=== PATIENT | male | born 1960 | race Caucasian/White ===

== ENCOUNTER 2025-08-30 12:01 | Inpatient (IN) | payer OTHER, SELFPAY ==
[2025-08-30] VITALS (12 sets, daily range): BP systolic 110–153; BP diastolic 75–106; BMI 25.6
[2025-08-30 08:19] LABS: Hematocrit 43.2 % (39.0-52.0); Hemoglobin 14.6 g/dL (13.0-18.0); Mean Corp Hgb Conc. 33.8 g/dL (33.0-37.0); Mean Corpuscular Volume 89.3 fL (80.0-94.0); Platelet Count 219 10^3/uL (130-400); Red Cell Dist. Width 12.2 % (11.5-14.5)
[2025-08-30 08:33] LABS: Blood Urea Nitrogen 16 mg/dl (9-20); Calcium 10.1 mg/dl (8.4-10.2); Carbon Dioxide 26 mmol/L (22-30); Chloride 105 mmol/L (98-107); Estimated Creatinine Clearance 85 ml/min; Glucose 165 mg/dl (70-99); Potassium 4.5 mmol/L (3.5-5.1); Sodium 139 mmol/L (135-145); eGFR > 60.00
[2025-08-30] MEDS: LOW STRENGTH ASPIRIN 324 MG PO (08:47)
[2025-08-30] MEDS: NSS 246 ML IV (08:48)
[2025-08-30 09:02] LABS: Glucose - Point of Care 171 mg/dl (70-99)
--- NOTE | 2025-08-30 12:21 | ITS.CL.CATH ---
Balance Wheel Facer - Catheterization
Cardiac Catheterization
Procedure Report:
LEFT HEART CATHETERIZATION
Date of Procedure: August 30, 2025
Procedures performed:
1: Coronary angiography
2: Left ventriculography
Primary Care Physician: Dr. Valerie Tian
Primary Mine Safety Engineer: Myself
INDICATION: The patient is a 64-year-old male with a past medical history of hypertension, hyperlipidemia, and diabetes mellitus who presents with new angina. Exercise stress test was markedly positive yesterday and he is referred for cath.
ACCESS: The patient was prepped and draped in usual sterile fashion. A 6 Angolan sheath was placed in the right radial artery using the Seldinger over the wire technique.
HEMODYNAMIC FINDINGS (mmHg):
LV(s/d,EDP): 121/13, 17
Ao(s/d,m): 121/78, 98
ANGIOGRAPHIC FINDINGS:
Single-plane Left Ventriculography in [place] Projection: Normal left ventricular systolic function with no regional wall motion abnormality. No significant mitral regurgitation. Visually estimated ejection fraction 60%.
Coronary Angiography:
Dominance: Right
Left Main: Distal 90% eccentric calcified stenosis.
Left Anterior Descending: The LAD is a medium caliber vessel that is moderately calcified with moderate diffuse proximal luminal irregularities. There is a high first diagonal branch which is small to medium in caliber that has an ostial 50 to 60%
stenosis. All vessels have normal flow.
Left Circumflex: The left circumflex is a medium caliber nondominant system that gives rise to 2 major obtuse marginal branches. There is proximal and mid calcifications noted. There is a proximal 50% stenosis. The first obtuse marginal branch
has a long area of 70-80% stenosis in the proximal portion. The distal vessel is widely patent with normal flow and is a excellent surgical target. The second obtuse marginal branch is widely patent with normal flow and also appears to be a good
surgical target.
Right Coronary: The right coronary artery is a medium caliber dominant system that gives rise to a medium caliber posterior descending artery. There is prominent calcification throughout the AV groove but no evidence of stenotic disease. There is
a smooth distal circumflex 30% stenosis before the bifurcation. The PDA and PLV branch system is widely patent with normal flow.
Fluoroscopy Time (min): 4.2
Radiation Dose (mGy): 373
DAP (Gy.cm2): 19
Closure device: None. A TR band was applied for hemostasis at the right wrist.
Complications: None.
ASSESSMENT:
1: Severe left main disease with normal resting distal flow.
2: Nonobstructive right coronary artery disease.
3: Normal LV systolic function with no significant mitral regurgitation.
CONCLUSIONS and RECOMMENDATIONS:
1: Admit for CT surgical evaluation. Ideally the patient will get a DAVALOS to the LAD and grafts to the OM1 and OM 2. Given the preocclusive nature of the disease and his new symptoms I feel he should be revascularized prior to discharge.
Shanda Palomino M.D.
Copy to: Dr. Valerie Tian
--- NOTE | 2025-08-30 12:39 | PTCARENOTE ---
Patient admitted to IVU from animal laboratory helper. AO x3. SR HR 60's. Right radial band intact, POX 98%. VSS, lunch provided, call barrow in reach
[2025-08-30 12:58] LABS: Glucose - Point of Care 158 mg/dl (70-99)
--- NOTE | 2025-08-30 14:08 | CONSULT.CT ---
Consultation
-
Date/Time Consultation Requested: 08/30/25
Date/Time Consultation Performed: 08/30/25 1410
Requesting Provider: Dr. Luis Palomino MD.
Performing Provider: Michelle Hale PA-C
Reason for Consultation: Positive stress test, evaluation for coronary artery revascularization
Patient History
Physicians
Family Physician: Dr. Valerie Tian
Outpatient Photoengraving Proofer Apprentice: Dr. Luis Palomino MD.
Inpatient Photoengraving Proofer Apprentice: Dr. Luis Palomino MD.
History of Present Illness
Patient is an extremely pleasant 64-year-old male with PMH significant for HTN, HLD, NIDDMII maintained on metformin, and PARRA, who has been experiencing chest tightness with radiation down bilateral arms for the previous month. Chest
pain/tightness is brought on with activity. The patient walks regularly for exercise as well as uses a treadmill. Chest pain always resolves once activity is stopped. Patient denies any chest pain while at rest.
Due to his symptoms he sought medical attention with Dr. Palomino. An outpatient stress test was performed in the office showing EKG changes consistent with ischemia which resolved in recovery. Subsequent cardiac catheterization was scheduled for
today 08/30/2025 at [facility].
Please see Dr. Palomino's full report for complete details, summary is as follows:
LM: 90% stenosis
LAD: prox LI
D1: small to medium, 50-60% stenosis
LCx: prox 50% stenosis
OM1: 70-80% prox.
OM2: widely patent, normal flow
RCA: no evidence of stenotic disease
PDA/PLV: widely patent, normal flow
In the setting of multivessel left main CAD with the patient's comorbidities of HTN, HLD and NIDDMII, CT surgery was consulted for coronary artery revascularization evaluation.
Past Medical History
Past Medical History: Other
HTN
HLD
NIDDMII maintained on metformin
PARRA
Past Surgical History
Past Surgical History: Other
Patient denies any prior surgical interventions
Dental History
Noncontributory
Family History
Mother: at Age (85) and Cause of (Complications with Alzheimer's)
Father: Still Living (Alive and well at the age of 95)
Social History
Alcohol: Daily (2-7 drinks/week)
Drug: None
Tobacco: Former Smoker (Quit at the age of 26)
Personal: (Has 2 children)
Living: With Spouse
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
Allergies
Allergy/AdvReac Type Severity Reaction Status Date / Time
benazepril Allergy COUGH Verified 08/30/25 12:35
Home Medications
�Medication �Instructions �Recorded �Confirmed �Type
amlodipine 5 mg tablet 5 mg PO DAILY 08/30/25 08/30/25 History
atorvastatin 20 mg tablet 20 mg PO QPM 08/30/25 08/30/25 History
coenzyme Q10 200 mg capsule (Co 200 mg PO DAILY 08/30/25 08/30/25 History
Q-10)
losartan 100 mg tablet 100 mg PO DAILY 08/30/25 08/30/25 History
metformin 1,000 mg tablet 1,000 mg PO BID 08/30/25 08/30/25 History
Review of Systems
-
History Source: Patient
General: Denies Fever, Weight Gain, Weight Loss or Fatigue
HEENT: Denies Visual Changes, Dysphagia, Hoarseness, Sore Throat or Mouth Pain
Respiratory: Reports THOMAS; Denies SOB, Cough, Asthma or PND
Cardiac: Reports Chest Pain; Denies Palpitations, Nausea, Vomiting, Diaphoresis or Edema
Abdomen/GI: Denies Abdominal Pain, Reflux, Indigestion, Diarrhea, Constipation, BRBPR or Black Stools
: Reports Nocturia; Denies Dysuria, Frequency, Incontinence, Urgency or Hematuria
Musculoskeletal: Denies Myalgias, Arthralgias, Joint Pain or Edema
Skin: Denies Itching or Rash
Neurological: Denies CVA, TIA, Headaches, Syncope, Dizzy, Weakness or Seizures
Vascular: Denies Claudication or PVD
Physical Exam
Vital Signs
Temp 97.5 F 08/30/25 08:30
Temp route: Oral 08/30/25 08:30
Pulse 63 08/30/25 13:45
Rhythm: Normal sinus rhythm 08/30/25 12:45
Resp Rate 18 08/30/25 08:30
Blood pressure 148/100 08/30/25 13:00
Blood pressure extremity used: Left upper arm 08/30/25 08:30
Position: Sitting 08/30/25 08:30
MAP (cuff-Frank Monitor) 114 08/30/25 13:00
SaO2 98 08/30/25 13:45
Oxygen Mode of Delivery Room air 08/30/25 12:45
Can the patient verbally communicate their pain? Yes 08/30/25 12:45
Actual Weight 180 lb 15.992 oz 08/30/25 08:26
Body Mass Index (BMI) 25.6 08/30/25 08:26
Labs
08/30/25 08:10
08/30/25 08:10
Diagnostic Studies
Cardiac Catheterization: 08/30/25 Dr. Palomino
LM: 90% stenosis
LAD: prox LI
D1: small to medium, 50-60% stenosis
LCx: prox 50% stenosis
OM1: 70-80% prox.
OM2: widely patent, normal flow
RCA: no evidence of stenotic disease
PDA/PLV: widely patent, normal flow
Exam
General: Well Developed, Well Nourished and No Apparent Distress
HEENT: Normocephalic, Moist Mucous Membranes, Atraumatic, PERRLA and EOMI
Neck: Trachea Midline; Negative Carotid Bruit
Respiratory: Clear; Negative Wheezes, Crackles, Rhonchi or Accessory Muscle Use
Cardiac: S1/S2 and Regular Rhythm; Negative Murmur, Rub or Gallop
GI: Soft, Non Tender, Non Distended and Normal Bowel Sounds
Rectal: Deferred by Provider
Skin: Warm and Dry; Negative Rash
Neuro: AO x 3, No Motor Deficits and CN X-XII Intact
Extremities: Negative Upper Level Edema, Lower Level Edema, Upper Level Cyanosis, Lower Level Cyanosis, Upper Level Clubbing or Lower Level Clubbing
Lymph: No Lymphadenopathy
Psych: Calm
Assessment / Plan
-
Assessment:
64-year-old male with PMA significant for:
HTN
HLD
NIDDMII maintained on metformin
PARRA
Now with newly diagnosed:
Chest discomfort
Positive stress test with ischemic changes
Left main multivessel coronary artery disease
Plan:
Patient's case will be discussed with attending physician.
Routine preoperative cardiothoracic surgery workup will be initiated.
STS risk stratification score will be calculated once all data is obtained.
Continue primary management per Cardiology.
Further details regarding patient's surgical intervention will be decided after attending's full review.
--- NOTE | 2025-08-30 15:30 | CM ---
Spoke to patient in room, he is previously independent. He lives with his in 2 story home, 1 step to enter, denies DME's. Plan is for CABG this admission, CM following.
--- NOTE | 2025-08-30 16:33 | W.PN.UPDATE ---
Update Note
Progress Note Update
CARDIAC SURGERY ATTENDING:
It was my pleasure to meet with Mr. Jd Sanchez. He is an extremely pleasant 64-year-old gentleman who has significant left main CAD. He will benefit from surgical coronary revascularization. My anticipated operative plan is ILDEFONSO to LAD, RA
to OM1, and greater saphenous vein to OM 2. I will offer concurrent exclusion of his left atrial appendage at the time of surgery given his family history of A-fib and the risk of perioperative A-fib. I had a long conversation at his bedside this
afternoon. We reviewed his coronary pathology, discussed the proposed operative interventions, reviewed the periprocedural risks (including, but not limited to, , stroke, FL, arrhythmia, PNA, GIUSEPPE/F, bleeding, and infection), discussed expected
in-hospital postprocedural course, and reviewed the expected outpatient recovery. All questions were answered to the best of my abilities. The patient is agreeable to proceed. All questions were answered to the best of my abilities.
We are currently in the process of completing an expedited preoperative workup including echocardiography, CT chest without contrast, carotid ultrasound assessment, and bedside PFTs if possible. He has been tentatively scheduled for surgery
tomorrow 08/31/2025 as a late morning start.
Thank you for the opportunity participate in the care of this kind gentleman.
Please call with any questions or concerns.
Juve Barnes MD
[phone]
[2025-08-30 16:42] LABS: INR 1.01; PT 13.8 Sec (11.4-14.6)
[2025-08-30 16:43] LABS: APTT 29.6 Sec (23.4-35.0)
[2025-08-30 16:48] LABS: ALT (SGPT) 76 U/L (0-50); AST (SGOT) 68 U/L (17-59); Albumin 4.2 g/dl (3.5-5.0); Alkaline Phosphatase 54 U/L (38-126); Total Protein 6.6 g/dl (6.3-8.2)
--- NOTE | 2025-08-30 17:00 | PTCARENOTE ---
Patient sent to radiology on a stretcher for CXR, CT scans and US ad ordered
--- NOTE | 2025-08-30 17:17 | RESPNOTE ---
Respiratory: attempted to perform Bedside PFT, but patient is in X-Ray, CT scan then Interventional Rad.
--- NOTE | 2025-08-30 18:33 | RESPNOTE ---
Respiratory: patient still off unit at tests not available for Bedside PFT.
--- NOTE | 2025-08-30 18:55 | W.PN.UPDATE ---
Update Note
Progress Note Update
STS RISK SCORE
Procedure Type:�Isolated CABG
Perioperative Outcome Estimate %
Operative Mortality 0.314%
Morbidity & Mortality 2.26%
Stroke 0.423%
Renal Failure 0.228%
Reoperation 1.48%
Prolonged Ventilation 0.97%
Deep Sternal Wound Infection 0.075%
Long Hospital Stay (>14 days) 1.07%
Short Hospital Stay (<6 days)* 76.9%
Clinical Summary
Planned Surgery: Isolated CABG, Urgent, First cardiovascular surgery
Demographics: 64 year old, male, 82.1kg, 179cm, BMI: 25.6 kg/m�
Lab Values: Creatinine: 0.9 mg/dL, Hematocrit: 43.2%, WBC Count: 7.5 10�/�L, Platelet Count: 233751 cells/�L
PreOp Medications: Oral diabetes control
Substance Abuse: Former smoker, Alcohol use: <=1 drink/week
Risk Factors / Comorbidities: Diabetes Mellitus , Hypertension
Cardiac Status: NYHA Class II, Ejection Fraction = 50%
Coronary Artery Disease: Stable Angina
Valve Disease: Trivial/Trace MR, Mild TR
[2025-08-30 20:00] LABS: Glucose - Point of Care 131 mg/dl (70-99)
[2025-08-30] MEDS: LIPITOR 40 MG PO (21:42)
[2025-08-30 22:50] LABS: Glucose - Point of Care 206 mg/dl (70-99)
[2025-08-31] VITALS (8 sets, daily range): BP systolic 83–134; BP diastolic 48–96; BMI 25.4
--- NOTE | 2025-08-31 00:51 | PTCARENOTE ---
assumed care of patient at the change of shift. AAOx3. daughter at the bedside. denies any cp/sob. SR on tele 70s-80s. bp stable. R radial site CDI. reviewed plan of care with patient. NPO at midnight for CVOR in the morning. questions answered. IS
reviewed with patient and encouraged. independent in the room. educated patient to inform Rn with any changes overnight.
CVOR prep completed. CHG bath. no cp.
at approx 2307, patient had a burst of which appeared was [place]. notified Chuck SANTANA PA. no new orders at this time.
[2025-08-31 05:11] LABS: Hematocrit 39.0 % (39.0-52.0); Hemoglobin 13.9 g/dL (13.0-18.0); Mean Corp Hgb Conc. 35.6 g/dL (33.0-37.0); Mean Corpuscular Volume 90.3 fL (80.0-94.0); Platelet Count 196 10^3/uL (130-400); Red Cell Dist. Width 12.1 % (11.5-14.5)
[2025-08-31 05:39] LABS: Blood Urea Nitrogen 21 mg/dl (9-20); Calcium 9.5 mg/dl (8.4-10.2); Carbon Dioxide 23 mmol/L (22-30); Chloride 110 mmol/L (98-107); Estimated Creatinine Clearance 85 ml/min; Glucose 161 mg/dl (70-99); HDL Cholesterol 49 mg/dl; LDL Cholesterol, Calculated 71 mg/dl; Potassium 4.5 mmol/L (3.5-5.1); Sodium 140 mmol/L (135-145); Very Low Density Lipoprotein 30 mg/dl (0-30); eGFR > 60.00
[2025-08-31 06:06] LABS: Glucose - Point of Care 170 mg/dl (70-99)
[2025-08-31] MEDS: MAGNESIUM OXIDE 400 MG PO (06:06)
[2025-08-31] MEDS: LOPRESSOR 25 MG PO (06:06)
[2025-08-31] MEDS: PROTONIX 40 MG PO (06:06)
[2025-08-31] MEDS: BACTROBAN 2% OINTMENT 1 APPLIC NASAL ×2 (06:06→20:53)
--- NOTE | 2025-08-31 06:31 | W.CVOR.SURPR ---
CVOR Surgeon Immed Pre Op
-
I have examined this patient prior to performance of the scheduled procedure.
The patient's condition is unchanged from the time of the dictated/written History and
Physical and the patient is able to undergo the scheduled procedure.
--- NOTE | 2025-08-31 08:01 | W.PN.CARDCBS ---
Addendum entered and electronically signed by Gavin Hayward MD 08/31/25 12:40:
I saw and examined the patient.
The VERIFICATION SPECIALIST or PA's note was reviewed and I agree with the note.
Comment: General: Well developed, well nourished in NAD.
Neck: Supple, no JVD, HJR, carotids +2 B/L, no bruits bilaterally.
Heart: Non displaced PMI, RRR, no murmurs, No S3, S4, no rubs.
Lungs: Clear to auscultation bilaterally, no wheeze, rhonchi, rubs bilaterally,
normal expiratory phase.
Extremities: No clubbing, cyanosis or edema bilaterally.
Neuro: Grossly nonfocal, awake, alert and oriented x3.
Stable cardiology status for CABG later today. Discussed with CT surgery.
Original Note:
Today's Communication / Plan
-
Will follow-up postop
Impression / Plan
-
PCP: Dr. Valerie Tian
Card: Dr. Luis Palomino
Impression:
Admitted with severe LM disease following cardiac cath for abnormal outpatient stress test 08/30/2025
Severe LM disease by cardiac cath 08/30/2025
Abnormal outpatient stress test
HTN
Hyperlipidemia
DM 2
Echo 08/30/2025: EF 55 to 60%, normal RV size and function, mild TR with PAP 18 mmHg, mildly dilated aortic root and ascending aorta, sinus of Valsalva 4.4 cm, ascending aorta 4.1 cm
Plan:
-Patient had symptoms of chest pain prompting stress test as an outpatient leading to cardiac cath that revealed severe LM disease and then admission on 08/30/2025. Patient has had chest pain with radiation down his arm with activity for a month.
Chest pain is worse with activity and better with rest. Outpatient stress test completed and it was abnormal, I do not have results, but patient referred for cardiac cath 08/30/2025. Cardiac cath showed severe left main disease with normal resting
flow and otherwise nonobstructive CAD. Patient was seen in consultation by CT surgery and CABG was offered.
-No chest pain overnight
-ECG from 08/30/2025 reviewed by me looks like sinus bradycardia without acute ST changes
-Echo reviewed and summarized above by me
-Will follow-up with the patient postop
-Outpatient dose of losartan 100 mg daily has been on hold since admission
-Outpatient dose of amlodipine 5 mg daily is also on hold
-Patient was not taking aspirin prior to admission and was given a loading dose at time of cath 08/30/2025 and suspect aspirin 81 mg daily will be ordered eventually postop
-LDL 71 in outpatient dose of atorvastatin 20 mg daily will be continued
-Patient known DM2 and his outpatient dose of metformin is on hold following cardiac cath and he is being managed with corrective insulin, but suspect insulin gtt postop. HgbA1c 7.2%.
Progress Note - Supervisor Coil Winding
Subjective
Date of Service: August 31, 2025
He is awaiting surgery
Objective
Labs:
08/31/25 04:58
08/31/25 04:58
Labs
Hgb 13.9 g/dL (13.0-18.0) 08/31/25 04:58
Hct 39.0 % (39.0-52.0) 08/31/25 04:58
Plt Count 196 10^3/uL (130-400) 08/31/25 04:58
PT 13.8 Sec (11.4-14.6) 08/30/25 16:12
INR 1.01 08/30/25 16:12
APTT 29.6 Sec (23.4-35.0) 08/30/25 16:12
Sodium 140 mmol/L (135-145) 08/31/25 04:58
Potassium 4.5 mmol/L (3.5-5.1) 08/31/25 04:58
BUN 21 mg/dl (9-20) H 08/31/25 04:58
Creatinine 0.9 mg/dL (0.7-1.3) 08/31/25 04:58
Glucose 161 mg/dl (70-99) H 08/31/25 04:58
Vital Signs and I&O:
Vital Signs
Temp Pulse Resp BP Pulse Ox
98.4 F 75 16 129/87 98
08/31/25 05:05 08/31/25 06:06 08/31/25 05:05 08/31/25 06:06 08/31/25 05:05
Vital Signs
Temp Pulse Resp BP Pulse Ox
98.4 F 75 16 129/87 98
08/31/25 05:05 08/31/25 06:06 08/31/25 05:05 08/31/25 06:06 08/31/25 05:05
Intake & Output
08/29/25 08/30/25 08/31/25 09/01/25
06:59 06:59 06:59 06:59
Intake Total 900 / 900
Balance 900 / 900
Physical Exam
Physical Exam
GEN: AAOx3
LUNGS: RA. No wheeze
CV: SR/SB on tele
[2025-08-31 08:28] LABS: Glycohemoglobin (HgbA1c) 7.2 % (4.0-5.6)
--- NOTE | 2025-08-31 09:22 | PTCARENOTE ---
Assumed care at 0700. Patient NPO since 10 pm last evening. Meds given with small sip of water at 0600. VSS. SB on telemetry, denies pain. Call barrow in reach
--- NOTE | 2025-08-31 10:37 | PTCARENOTE ---
Patient sent to OR, NPO since midnight, voided pre-procedure
[2025-08-31 11:28] LABS: ACT+ - POC 137 Seconds (82-134)
[2025-08-31 12:20] LABS: Urine Character Clear (Clear)
[2025-08-31 13:37] LABS: Urine Red Blood Cell 0-2 /HPF (0-2); Urine Squamous Cell 0-2 /LPF (Few); Urine White Cell 0-2 /HPF (0-5)
[2025-08-31 13:39] LABS: ACT+ - POC 783 Seconds (82-134)
[2025-08-31 14:06] LABS: ACT+ - POC 649 Seconds (82-134)
[2025-08-31 14:22] LABS: B.E. - POC 2.3 mmol/L; Glucose - POC 171 mg/dl (70-99); HCO3 - POC 27 mmol/L (21-28); Hematocrit - POC 30 % PCV (42-52); Hemodilution- POC Yes; Hemoglobin Calculated - POC 10.2; Ionized Calcium - POC 1.00 mmol/L (1.15-1.33); Lactate - POC 0.78 mmol/L (0.36-0.75); O2 Saturation %Calculated-POC 100.0 % (94-98); PCO2 - POC 39 mmHg (35-48); PO2 - POC 347 mmHg (83-108); Potassium - POC 5.2 mmol/L (3.5-5.1); Sodium - POC 139 mmol/L (136-145); Specimen Type - POC Arterial; pH - POC 7.44 (7.35-7.45)
--- NOTE | 2025-08-31 14:34 | CM ---
Chart reviewed. Patient is in the OR today. Patient is independent of ADLS, lives with his in a 2 STH, 1 ROSALVA, 0 DME. Plan is to return home with CT Transitional RN. CM to follow
[2025-08-31 14:41] LABS: ACT+ - POC 499 Seconds (82-134)
[2025-08-31 14:48] LABS: B.E. - POC 0.0 mmol/L; Glucose - POC 198 mg/dl (70-99); HCO3 - POC 24 mmol/L (21-28); Hematocrit - POC 31 % PCV (42-52); Hemodilution- POC Yes; Hemoglobin Calculated - POC 10.7; Ionized Calcium - POC 0.97 mmol/L (1.15-1.33); Lactate - POC 0.44 mmol/L (0.36-0.75); O2 Saturation %Calculated-POC 100.0 % (94-98); PCO2 - POC 37 mmHg (35-48); PO2 - POC 403 mmHg (83-108); Potassium - POC 5.6 mmol/L (3.5-5.1); Sodium - POC 139 mmol/L (136-145); Specimen Type - POC Arterial; pH - POC 7.42 (7.35-7.45)
[2025-08-31 14:58] LABS: ACT+ - POC 521 Seconds (82-134)
[2025-08-31 15:33] LABS: B.E. - POC 2.6 mmol/L; Glucose - POC 225 mg/dl (70-99); HCO3 - POC 28 mmol/L (21-28); Hematocrit - POC 30 % PCV (42-52); Hemodilution- POC Yes; Hemoglobin Calculated - POC 10.1; Ionized Calcium - POC 0.97 mmol/L (1.15-1.33); Lactate - POC 2.21 mmol/L (0.36-0.75); O2 Saturation %Calculated-POC 99.7 % (94-98); PCO2 - POC 44 mmHg (35-48); PO2 - POC 194 mmHg (83-108); Potassium - POC 5.8 mmol/L (3.5-5.1); Sodium - POC 141 mmol/L (136-145); Specimen Type - POC Arterial; pH - POC 7.41 (7.35-7.45)
[2025-08-31 15:42] LABS: ACT+ - POC 457 Seconds (82-134)
[2025-08-31 15:50] LABS: B.E. - POC 0.6 mmol/L; Glucose - POC 222 mg/dl (70-99); HCO3 - POC 26 mmol/L (21-28); Hematocrit - POC 29 % PCV (42-52); Hemodilution- POC Yes; Hemoglobin Calculated - POC 10.0; Ionized Calcium - POC 1.26 mmol/L (1.15-1.33); Lactate - POC 2.00 mmol/L (0.36-0.75); O2 Saturation %Calculated-POC 99.9 % (94-98); PCO2 - POC 45 mmHg (35-48); PO2 - POC 344 mmHg (83-108); Potassium - POC 4.2 mmol/L (3.5-5.1); Sodium - POC 143 mmol/L (136-145); Specimen Type - POC Arterial; pH - POC 7.38 (7.35-7.45)
[2025-08-31 15:56] LABS: ACT+ - POC 137 Seconds (82-134)
[2025-08-31 16:14] LABS: B.E. - POC -0.4 mmol/L; Glucose - POC 214 mg/dl (70-99); HCO3 - POC 26 mmol/L (21-28); Hematocrit - POC 28 % PCV (42-52); Hemodilution- POC Yes; Hemoglobin Calculated - POC 9.7; Ionized Calcium - POC 1.22 mmol/L (1.15-1.33); Lactate - POC 2.40 mmol/L (0.36-0.75); O2 Saturation %Calculated-POC 99.6 % (94-98); PCO2 - POC 51 mmHg (35-48); PO2 - POC 189 mmHg (83-108); Potassium - POC 3.7 mmol/L (3.5-5.1); Sodium - POC 142 mmol/L (136-145); Specimen Type - POC Arterial; pH - POC 7.32 (7.35-7.45)
--- NOTE | 2025-08-31 16:17 | W.IMMPOSTOP ---
Addendum entered and electronically signed by Juve Barnes MD 08/31/25 17:31:
[id number]
Original Note:
Surgical Immed Post Op Note
-
CARDIAC SURGERY OPERATIVE NOTE:
Preoperative Dx:
2VCAD including significant LM disease
Postoperative Dx:
Same
Procedures:
1) Median sternotomy
2) Takedown of ILDEFONSO (narrow pedicle)
3) Endoscopic harvest/prep of L RA
4) Exploration of RLE GSV - not used
5) Endoscopic harvest/prep of LLE GSV
6) CABG x 3 (ILDEFONSO to LAD, RA to OM1, GSV to OM2)
7) ELAA (50mm AtriClip)
Surgeon:
Juve Barnes M.D.
Assistants:
Bulmaro AguirreAApple; hospital aides and assistants teacher throughout; endoscopic harvest/prep of LLE GSV; sternotomy closure
Maki Pandey P.A.-C.; endoscopic harvest/prep of L RA; sternotomy closure
Anesthesia:
Luciano Morales M.D. and Malachi CarrascoN.A.
Perfusion:
Eliza BarkerPOdessa; XC: 67min, CPB: 119min
Findings:
ILDEFONSO was a healthy conduit w/ brisk blood flow; ELD 2.25mm
L RA was a healthy conduit w/ ELD 3.25mm
LLE GSV was healthy conduit w/ ELD 3.75mm
Pt. w/ bradycardia to 30s w/ stable BP during ILDEFONSO takedown - pericardium opened and pacing temporarily instituted
LAD was visible on the epicardial surface, scant scattered calcifications, ELD 2.5mm at midpoint anastomosis
OM1 was visible on the epicardial surface, moderate scattered calcifications, ELD 2.75mm
OM2 was visible on the epicardial surface, scant scattered calcifications, ELD 2.5mm
Large 'windsock' morphology LORI - successfully excluded at base w/ 50mm AtriClip - confirmed w/ ANNA postoperatively
Good flow in all grafts on intraoperative transit-time U/S flow probe assessment - 2mm probe was not working well
Post-ANNA: Hyperdynamic LVEF 65-70% w/o RWMA, normal RV, no sig VHD, LORI confirmed excluded
Complications:
None
Implants:
Epicardial bipolar pacing wire x 1
CT x 4 (B/L pleural, inferior mediastinal, superior mediastinal)
Sternal wires x 7
Sternal 'X' plate w/ 8 - 14mm screws
Sternal 'Square' plate w/ 4 - 10mm screws
Transfusions:
None
Condition:
68 sinus (0.0/0.0); 93/48; CVP: 8; 99%
GTTS: levophed 6, insulin 2, precedex 0.6, diltiazem 2.5
Stable/guarded to CVICU
[2025-08-31] MEDS: LR 250 ML IV ×3 (17:10→18:08)
[2025-08-31 17:12] LABS: Glucose - Point of Care 198 mg/dl (70-99)
--- NOTE | 2025-08-31 17:14 | W.PN.UPDATE ---
Update Note
Progress Note Update
64-year-old male with PMH significant for HTN, HLD, NIDDMII, and PARRA, with one month history of exertional chest tightness with radiation down bilateral arms. Patient was evaluated by Dr. Palomino and an outpatient stress test reported EKG changes
consistent with ischemia. Patient underwent elective catheterization on 08/30/25 which identified 90% left main/2 vessel coronary disease. Expedited work-up completed and patient underwent CABG 08/31/25.
IV fluids: 1750
U.O.:� 600
Blood:� none
Wires:� Bipolar V-wire
Drips: Levophed @ 10, Cardene @ 2.5, Insulin, Precedex
�
NEURO: sedated, pupils +2mm B/L
RESP: #8OT @24cm> 550/4%/12/5. Lungs clear B/L. 2 mediastinal (20cc on arrival) and R/L pleural (15cc on arrival) chest tubes to -20cm suction. Sanguineous drainage
CV: RRR +S1, S2, no S3, no�rub, no murmur. Aquacell to median sternotomy. RIJ w/Slik intact
ABD: round, soft, no BS
EXT: no edema, +2/4 DP pulses B/L, no femoral bruit, LLE ALBERT wrap intact; right radial A-line intact; LUE radial harvest site with ALBERT wrap intact
: Becker with clear yellow urine
�
A/P: POD #0 s/p CABG x 3 (ILDEFONSO to LAD, RA to OM1, GSV to OM2), ELAA (50mm AtriClip)
ANNA: EF�70-75%
- wean and extubate
- hold Cardizem for transient post op hypotension/vasoplegia (last ALBERT dose 08/30 in AM)
# CAD
- will require ASA, Plavix, statin (increase to high intensity dosing), beta-ligia
- Ca+ ligia for radial patency as BP tolerates
- t/c SGLT2i
�
# acute surgical blood loss anemia-expected
- trend CBC
# HTN
- on Losartan/amlodipine @ home
- resume as BP permits
�
# T2DM (A1C 7.2)
- insulin infusion x 48h
- diabetes nurse practitioner to follow
- on MFM 1000mg BID at home
�
[2025-08-31 17:16] LABS: B.E. -0.6 mmol/L; HCO3 25.4 mmol/L (21-28); O2 Saturation % 99.0 % (94-98); PCO2 47 mmHg (35-48); PO2 104 mmHg (83-108); Potassium 4.0 mMOL/L (3.5-5.1); Sodium 138 mMOL/L (136-145)
[2025-08-31] MEDS: CALCIUM GLUCONATE 100 IV (17:24)
[2025-08-31] MEDS: DILAUDID 0.5 MG IV (17:24)
[2025-08-31 17:27] LABS: INR 1.44; PT 18.0 Sec (11.4-14.6)
[2025-08-31 17:28] LABS: APTT 28.9 Sec (23.4-35.0)
--- NOTE | 2025-08-31 17:32 | PTCARENOTE ---
Received pt from CVOR at 1700; pt intubated and sedated; NSR BBB on monitor and VSS; Epicardial V wire in place and box turned off; RIJ Cordis/SLIC, Right A-line and PIV x1 all lines leveled and zeroed; Levo, Insulin and Precedex infusing see flow
sheet for details; + rub; Lungs diminished; CT x4 to -20 wall suction no air leak and no crepitus noted; ETT 8 24@ lip; vent settings 550/40%/5/12; hypoactive bowel sounds; Becker catheter draining yellow urine; palpable pulses throughout; no edema
noted; all surgical sites C/D/I; see nursing documentation for further details.
[2025-08-31 17:35] LABS: Blood Urea Nitrogen 18 mg/dl (9-20); Estimated Creatinine Clearance 95 ml/min; Glucose 191 mg/dl (70-99); Magnesium 2.6 mg/dl (1.6-2.3)
[2025-08-31 17:38] LABS: Hematocrit 30.2 % (39.0-52.0); Hemoglobin 10.1 g/dL (13.0-18.0); Platelet Count 160 10^3/uL (130-400)
[2025-08-31] MEDS: ANCEF 10 IV ×2 (17:59)
[2025-08-31] MEDS: NOVOLOG FLEXPEN SC ×2 (17:59)
[2025-08-31] MEDS: NEURONTIN PO ×2 (17:59→23:50)
[2025-08-31] MEDS: NSS 500 IV (18:00)
[2025-08-31] MEDS: LIPITOR PO (18:00)
[2025-08-31] MEDS: TYLENOL PO ×2 (18:00→21:55)
[2025-08-31] MEDS: PACERONE PO (18:00)
[2025-08-31] MEDS: CARDIZEM 125 IV (18:01)
[2025-08-31 18:11] LABS: Glucose - Point of Care 167 mg/dl (70-99)
[2025-08-31] MEDS: VERSED 0.5 MG IV ×2 (18:25→18:39)
[2025-08-31] MEDS: CALCIUM CHLORIDE 10% SYRINGE 500 MG IV ×2 (18:30→18:39)
--- NOTE | 2025-08-31 18:44 | PTCARENOTE ---
Addendum entered by Tiffani Mclaughlin RN 08/31/25 19:04:
CTNP in room during this time.
Original Note:
Bradycardia on monitor HR 35-40s; Epicardial V wire set to VVI 80/10/0.8 and 100% paced on monitor; hypotensive on monitor Versed given and Calcium IV push see MAR for details; LR 250ml bolus gien; Levo titrated per protocol.
[2025-08-31 19:03] LABS: Glucose - Point of Care 177 mg/dl (70-99)
[2025-08-31 19:11] LABS: Hepatitis C Antibody Negative (Negative)
[2025-08-31] MEDS: SENOKOT PO (19:22)
--- NOTE | 2025-08-31 19:31 | PTCARENOTE ---
assumed care of pt from previous RN. pt intubated, sedated s/p CVOR. R IJ cordis w/ SLIC. R radial a-line. all lines leveled, zeroed, flushed. ETT size 8.0, 24cm at the lip. Vent settings SIMV 14/550/5/40%. POX 100%. SR on tele-monitor. temp
epicardial v-wires plugged into pulse generator w/ back up settings VVI 60/10/0.8. CT x4 (R & L pleural, mediastinal x2) to -20cm wall suction. abd s/n, hypoactive BS. mesa catheter draining clear, yellow colored urine. all surgical sites stable,
CDI. PIV intact. see worklist for complete nursing assessment, interventions, gtt titrations, VS, and I&Os.
[2025-08-31 19:58] LABS: B.E. 0.8 mmol/L; HCO3 26.0 mmol/L (21-28); O2 Saturation % 98.8 % (94-98); PCO2 43 mmHg (35-48); PO2 163 mmHg (83-108); Potassium 4.5 mMOL/L (3.5-5.1); Sodium 137 mMOL/L (136-145)
[2025-08-31 20:10] LABS: Glucose - Point of Care 141 mg/dl (70-99)
[2025-08-31] MEDS: LEVOPHED 250 IV (20:49)
[2025-08-31 20:50] LABS: Glucose - Point of Care 156 mg/dl (70-99)
[2025-08-31 20:51] LABS: B.E. -0.7 mmol/L; HCO3 24.2 mmol/L (21-28); O2 Saturation % 99.3 % (94-98); PCO2 40 mmHg (35-48); PO2 137 mmHg (83-108)
[2025-08-31 20:52] LABS: Hematocrit 30.7 % (39.0-52.0); Hemoglobin 10.1 g/dL (13.0-18.0); Platelet Count 168 10^3/uL (130-400)
--- NOTE | 2025-08-31 21:15 | PTCARENOTE ---
RT at bedrest. pt extubated to 6 L NC at 2114.
[2025-08-31] MEDS: OFIRMEV 100 IV (21:18)
[2025-08-31] MEDS: LOW STRENGTH ASPIRIN 81 MG PO (22:36)
[2025-08-31] MEDS: ANCEF 5 IV (22:36)
[2025-08-31 23:07] LABS: Glucose - Point of Care 181 mg/dl (70-99)
[2025-09-01] VITALS (29 sets, daily range): BP systolic 71–134; BP diastolic 50–90; PULSE 88; O2SAT 97–98; BMI 27.0
[2025-09-01 00:09] LABS: Glucose - Point of Care 171 mg/dl (70-99)
--- NOTE | 2025-09-01 01:00 | PTCARENOTE ---
pt drowsy, oriented x4. SR/ST w/ intermittent v-pacing via temp wires. POX 100% on 4 L NC. see worklist for VS, I&Os, and gtt titrations.
--- NOTE | 2025-09-01 01:36 | RESPNOTE ---
Addendum entered by Shazia Montaño, RT 09/01/25 01:42:
extubated 0n 09/01/25 @ 1165
Original Note:
PT was extubated at this time and placed on a 6 L N/C. PT was extubated following a CPAP/PS weaning trial and acceptable ABG results. PT voiced his name afterwards and incentive spirometry was done, yielding 1,000 mls as the best one.
[2025-09-01] MEDS: ROXICODONE 5 MG PO ×3 (01:39→21:00)
--- NOTE | 2025-09-01 01:45 | W.PN.CT ---
Today's Communication / Plan
-
-POD#1
-while intubated yesterday he would wake up and vagal (became bradycardic and hypotensive), vent settings were adjusted based on ABG. Next ABG normalized and patient placed on PS, ABG obtained(WNL) then extubated shortly thereafter. His temp pacer
was set to 60 and he was inappropriately pacing and causing hypotension so it was set to a rate of 40 with no further episodes of hypotension. He recieved a total of 1500ml of LR.
-wean Levophed as BP allows, currently at 3mcg
-start CCB when BP allows once off Levo
-start BBl once off levo
-CT output 2PL: 2Med:
-UO 30-45ml/hr.
-continue insulin drip
-OOB/ISB
Assessment / Plan
-
unstable angina with MVCAD now s/p CABG x 3 (ILDEFONSO to LAD, RA to OM1, GSV to OM2), ELAA (50mm AtriClip) POD#1
Postoperative ANNA: Normal left ventricular size and systolic function, no regional wall motion abnormalities seen. EF 60 to 65%.
-MVCAD
-HTN
-HLD
-NIDDMII
-PARRA
-acute blood loss anemia
Subjective
Procedure
s/p CABG x 3 (ILDEFONSO to LAD, RA to OM1, GSV to OM2), ELAA (50mm AtriClip) by Dr. Barnes on 08/31/25
-
Date of Service: September 01, 2025
Objective Data
-
Lab Results
09/01/25 03:11
09/01/25 03:11
PT 18.0 Sec (11.4-14.6) H 08/31/25 17:10
INR 1.44 08/31/25 17:10
APTT 28.9 Sec (23.4-35.0) 08/31/25 17:10
Vital Signs
Vital Signs
Temp Pulse Resp BP Pulse Ox
100.2 F 62 23 121/78 97
09/01/25 05:00 09/01/25 05:30 09/01/25 05:30 09/01/25 02:48 09/01/25 05:30
CT Intake/Output/Weight
08/31/25 08/31/25 09/01/25
06:59 18:59 06:59
Intake Total 400 / 900 624.9 / 2258.9 1634.0 / 2258.9
Output Total 370 / 1435 1065 / 1435
Balance 400 / 900 254.9 / 823.9 569.0 / 823.9
SaO2: 100
Physical Exam
-
General: AOx3
Cardiovascular: Regular rate & rhythm
Respiratory: Decreased Breath Sounds
Sternum: Stable
Incision: Dressing Intact
Extremities: No Edema
[2025-09-01 02:09] LABS: Glucose - Point of Care 153 mg/dl (70-99)
[2025-09-01 03:14] LABS: Glucose - Point of Care 155 mg/dl (70-99)
[2025-09-01 03:30] LABS: Hematocrit 26.3 % (39.0-52.0); Hemoglobin 9.1 g/dL (13.0-18.0); Mean Corp Hgb Conc. 34.6 g/dL (33.0-37.0); Mean Corpuscular Volume 88.9 fL (80.0-94.0); Platelet Count 163 10^3/uL (130-400); Red Cell Dist. Width 12.2 % (11.5-14.5)
--- NOTE | 2025-09-01 04:00 | PTCARENOTE ---
no acute changes. sinus arrhythmia on 12 lead EKG. AM labs collected and sent.
[2025-09-01 04:08] LABS: Blood Urea Nitrogen 19 mg/dl (9-20); Calcium 8.7 mg/dl (8.4-10.2); Carbon Dioxide 25 mmol/L (22-30); Chloride 109 mmol/L (98-107); Estimated Creatinine Clearance 95 ml/min; Glucose 143 mg/dl (70-99); Magnesium 1.8 mg/dl (1.6-2.3); Potassium 4.3 mmol/L (3.5-5.1); Sodium 139 mmol/L (135-145); eGFR > 60.00
[2025-09-01 04:11] LABS: Glucose - Point of Care 152 mg/dl (70-99)
[2025-09-01] MEDS: FLEXERIL 5 MG PO (05:07)
[2025-09-01] MEDS: ANCEF 5 IV ×2 (05:07→13:16)
[2025-09-01] MEDS: TYLENOL 975 MG PO ×3 (05:07→21:01)
[2025-09-01 05:20] LABS: Glucose - Point of Care 135 mg/dl (70-99)
[2025-09-01 06:07] LABS: Glucose - Point of Care 122 mg/dl (70-99)
--- NOTE | 2025-09-01 07:17 | W.PN.ANS.POP ---
Anesthesia Post Operative
- Anesthesia Post Op Note
Vital Signs Stable-See Nursing Note: Yes
Airway Patent: Yes
Adequate Pain Control: Yes
Change in Mental Status: No
Current Postoperative Nausea & Vomiting: No
Anesthesia Complications: No
General Anesthetic Recall: No
Unplanned Admission: No
Post Op Hydration Adequate: Yes
[2025-09-01] MEDS: NOVOLIN R INSULIN INFUSION 100 IV (07:22)
[2025-09-01] MEDS: MAGNESIUM SULFATE 50 IV (07:23)
--- NOTE | 2025-09-01 07:35 | CON.INTV ---
Consultation
Consultation Request
Date/Time Consultation Requested: 08/31/2025
Date/Time Consultation Performed: 09/01/2025
Medical History
-
Chief Complaint: Chest tightness
History of Present Illness:
Patient is a 64-year-old gentleman with history of hypertension, hyperlipidemia and diabetes who had been experiencing some chest tightness in the past. Patient subsequently had outpatient stress test performed which was suggestive of ischemia.
Subsequent cardiac catheterization was performed which was suggestive of significant left main disease. Patient was subsequently evaluated by cardiothoracic surgery with tentative plan for surgical revascularization. Postprocedure, patient was
admitted to CVICU and senior technical analyst consultation was requested for further input.
Past Medical History
HTN
HLD
NIDDMII maintained on metformin
PARRA
Past Surgical History
Past Surgical History: Other
Patient denies any prior surgical interventions
Dental History
Noncontributory
Family History
Mother: at Age (85) and Cause of (Complications with Alzheimer's)
Father: Still Living (Alive and well at the age of 95)
Social History
Alcohol: Daily (2-7 drinks/week)
Drug: None
Tobacco: Former Smoker (Quit at the age of 26)
Personal: (Has 2 children)
Living: With Spouse
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
Allergies / Home Medications
Allergies
Allergy/AdvReac Type Severity Reaction Status Date / Time
benazepril Allergy COUGH Verified 08/30/25 12:35
Home Medications
�Medication �Instructions �Recorded �Confirmed �Last Taken �Type
amlodipine 5 mg tablet 5 mg PO DAILY 08/30/25 08/30/25 08/30/25 06:00 History
atorvastatin 20 mg tablet 20 mg PO QPM 08/30/25 08/30/25 08/29/25 20:00 History
coenzyme Q10 200 mg capsule (Co 200 mg PO DAILY 08/30/25 08/30/25 08/29/25 20:00 History
Q-10)
losartan 100 mg tablet 100 mg PO DAILY 08/30/25 08/30/25 08/30/25 06:00 History
metformin 1,000 mg tablet 1,000 mg PO BID 08/30/25 08/30/25 08/29/25 08:00 History
Review of Systems
-
Hematologic/Lymphatic: Other (All 14 systems reviewed and negative except as stated above in the history of present illness.)
Vitals / Labs / Diagnostic Testing
Vital Signs
Temp Pulse Resp BP Pulse Ox
98.4 F 75 16 129/87 98
08/31/25 05:05 08/31/25 06:06 08/31/25 05:05 08/31/25 06:06 08/31/25 05:05
Lab Data
08/31/25 04:58
08/31/25 04:58
Laboratory Results
08/30/25
16:12
PT 13.8
INR 1.01
APTT 29.6
Diagnostic Testing:
Physical Exam
-
HEENT: Normocephalic
Cardiovascular: S1/S2 and Peripheral Edema (Left hand has edema, )
Respiratory: Clear and Non-Labored Respirations
GI: Soft
Neurology: Awake and Alert
Skin: Warm
General: Comfortable
Assessment
-
64 y/o male patient with severe CAD, S/p CABG and LA appendage exclusion POD # 1
Titrate off pressors per protocol, currently Levophed infusing at 3, nitroglycerin at 10, MAP of 69. CVP of 4.
ECHO reviewed with normal function
Management of chest tubes per primary service, no air leak noted
Patient extubated, currently saturating 95% on 3 L supplemental oxygen. Work of breathing normal.
CXR with no obvious opacities/infiltrates
Maintain supplement oxygen as needed
No prior history of pulmonary disease, Smoked very briefly in his 20's.
Spirometry 08/31, normal without suggestion of obstruction or restriction.
Can add nebulizers if needed
Aspiration precautions
Encouraged incentive spirometry, OOB/ambulation/early mobility
Advance diet as tolerated following extubation
GI prophylaxis: Protonix
Monitor critical I/O's
Becker/chest tube output
Hb/platelets postoperatively, mild drift
Trend CBC for now
Can transfuse if indicated for Hb <7, plt <50 in surgical patients
DVT prophylaxis including SCDs
Insulin protocol initiated and ongoing
Transition to SQ/off as indicated per team
Other medical diagnoses:
- Mild aortic root and ascending aortic dilation
- HTN, HLD
- DM
Critical Care time [63] mins -- The patient is admitted for acute critical illness for the treatment of vital organ failure and/or prevention of further life-threatening conditions. Total care includes time spent in review of history, physical exam,
medications, hemodynamic/ventilator parameters, laboratory data, imaging and discussion with house staff, pharmacy, respiratory therapy, spring upholsterer, and nursing
Data:
CXR 08/2025: No acute cardiopulmonary process.
CT Chest 08/2025: 1. No significant acute abnormality identified in the chest within the limits of unenhanced CT, as described above.
2. Mild fusiform aneurysmal dilatation of the ascending thoracic aorta measuring up to 4.1 cm.
3. Severe three-vessel coronary artery calcifications.
ECHO 08/2025: 1. Ejection fraction is 55-60% by visual assessment.
2. Right ventricular size and systolic function are within normal limits.
3. Mild tricuspid regurgitation. Estimated pulmonary artery pressure of 18 mmHg assuming a right atrial pressure of 3 mmHg.
4. Mildly dilated aortic root and ascending aorta (SOV 4.4 cm, Asc aorta 4.1 cm).
5. There are no prior studies available for comparison.
LHC 08/2025: 1: Severe left main disease with normal resting distal flow.
2: Nonobstructive right coronary artery disease.
3: Normal LV systolic function with no significant mitral regurgitation.
[2025-09-01 07:53] LABS: Glucose - Point of Care 136 mg/dl (70-99)
[2025-09-01] MEDS: DILAUDID 0.5 MG IV (07:56)
--- NOTE | 2025-09-01 08:23 | PN.DE.MGMTRT ---
Insulin Management
- -
09/01/2025: Diabetes Management Consult
64 year old male with PMH: HTN, HLD and T2DM who had been experiencing some chest tightness in the past. Patient subsequently had outpatient stress test performed which was suggestive of ischemia. Subsequent cardiac catheterization was performed
which was suggestive of significant left main disease. Patient was subsequently evaluated by cardiothoracic surgery with tentative plan for surgical revascularization. Was taking Metformin 1000mg BID prior to admission. A1C 7.2%, Cr 0.8, eGFR >60.
Patient is awake alert and oriented, sitting up in bed, able to discuss diabetes care, Dtr at bedside and supportive.
Patient currently receiving critical care glycemic protocol insulin infusion at 3.5 to 6 units per hour.
Will continue insulin infusion today and assess in AM for readiness to transition to home regimen.
Discuss addition of Farxiga or Jardiance with pt and Dtr, discusses benefits of SGLT2. Both pt and Dtr were very hesitant, pt states he has been doing well on metformin alone and prefers not to have another pill added. Informed pt of current A1C and
emphasized importance of glucose control post cardiac surgery to minimize acute and chronic diabetes related complications. Pt states he will think about it
Will ask CM to check cost of Jardiance/Farxiga.
Discussed with nurse. Will cont to follow. Resume Metformin 1000 mg BID and start SGLT2 upon transition.
Diabetes History
- -
Type of Diabetes: 2
Pre-Admission Diabetes Regimen
08/31/25 09/01/25
17:10 03:11
Creatinine 0.8 0.8
Lab Results
Hemoglobin A1c 7.2 % (4.0-5.6) H 08/30/25 16:12
Insulin Pump Settings
IP Diabetes Regimen
08/31/25 08/31/25 08/31/25
17:09 17:10 18:09
Glucose 191 H
POC Glucose 198 H 167 H
08/31/25 08/31/25 08/31/25
19:02 20:08 20:45
Glucose
POC Glucose 177 H 141 H 156 H
08/31/25 09/01/25 09/01/25
23:05 00:06 02:05
Glucose
POC Glucose 181 H 171 H 153 H
09/01/25 09/01/25 09/01/25
03:10 03:11 04:09
Glucose 143 H
POC Glucose 155 H 152 H
09/01/25 09/01/25 09/01/25
05:16 06:05 07:52
Glucose
POC Glucose 135 H 122 H 136 H
Patient Education
--- NOTE | 2025-09-01 09:00 | PTCARENOTE ---
Assumed care of patient. Walking rounds completed with previous RN. Pt assessed while he was lying in bed. Pt alert and oriented x4. Pt denies pain at this time, pain at 0800 was 10/10 in left arm, controlled with dilaudid. Denies nausea, shortness
of breath, and numbness. Sinus arrhythmia on tele with rates in the 90s-100s. BP supported with levophed, titrating per orders. +Rub. Right radial, left ulnar, and bilateral DP pulses palpable. Generalized edema +1 noted. Epicardial v-wire to back
up 40/11/0.8, no pacing noted. POX 96% on 2L, titrate to RA, POX 89%, 1L NC 93-94%. Lungs diminished in the bases. No cough noted. IS encouraged-1750mL achieved. Right and Left pleural chest tubes y-sited to 1 atrium to -20cm suction draining
serosanguineous fluid. Mediastinal chest tubes x2 y-sited to 1 atrium to -20cm suction draining serosanguineous fluid. No air leaks, tidaling, crepitus noted. Output WNL. Abdomen soft, round, nontender. Hypoactive BS. Tolerating water. Becker
catheter intact draining adequate amounts of lucita urine. Sternal incision covered with Aquacel-CDI. CT dressing changed. Right knee incision approximated with skin glue, FILTER WASHER. Left groin puncture site approximated with skin glue. Left SVG harvest
site approximated with ALBERT intact. Left radial incision covered with ALBERT, CDI. Right IJ cordis and slick intact. Right radial jojo flushed, leveled, zeroed with appropriate waveform, correlating with cuff. Right wrist 18g PIV intact infusing
Insulin gtt. See MAR for medication administration. See worklist for complete nursing assessment. Plan of care reviewed and patient in agreement.
--- NOTE | 2025-09-01 09:18 | W.PN.CARDCBS ---
Addendum entered and electronically signed by Hiram Lambert MD 09/01/25 10:29:
I saw and examined the patient.
The Circuit Board Inspector's note was reviewed and I agree with the note.
Comment:
GEN: No distress, awake, Ox3
HEENT: supple, anicteric, mmm
LUNGS: CTA, no wheezes/rales
CV: Reg, S1/S2, + rub
ABD: soft, BS+, NT/ND
EXT: No edema
NEURO: Gross non-focal
SKIN: No rash
Plan:
Had episodes of bradycardia overnight. Continue to follow. Hold amiodarone and metoprolol for now.
ECG with some ST elevation. Likely pericarditis. Continue to wean pressors.
On midodrine.
Cont ASA/Plavix
Original Note:
Today's Communication / Plan
-
in SR. follow rhythm
pericarditis by EKG
wean levo
continue post op care
Impression / Plan
-
PCP: Dr. Valerie Tian
Card: Dr. Luis Palomino
Impression:
Admitted with severe LM disease following cardiac cath for abnormal outpatient stress test 08/30/2025
Severe LM disease by cardiac cath 08/30/2025
s/p CABG x 3 (ILDEFONSO to LAD, RA to OM1, GSV to OM2), ELAA (50mm AtriClip) 08/31/25
HTN
Hyperlipidemia
DM 2
Echo 08/30/2025: EF 55 to 60%, normal RV size and function, mild TR with PAP 18 mmHg, mildly dilated aortic root and ascending aorta, sinus of Valsalva 4.4 cm, ascending aorta 4.1 cm
Plan:
-Patient had symptoms of chest pain prompting stress test as an outpatient leading to cardiac cath that revealed severe LM disease and then admission on 08/30/2025. Cardiac cath showed severe left main disease with normal resting flow and otherwise
nonobstructive CAD.
-s/p CABG x 3 (ILDEFONSO to LAD, RA to OM1, GSV to OM2), ELAA (50mm AtriClip) 08/31/25
-extubated. wean supp O2 as able
-on levo@3, wean as able. starting midodrine
-noted to have several vagal episodes last evening (with associated hypotension and sinus bradycardia). his temp pacer rate was decreased to 40 due to inappropriate pacing with improvement. currently in SR, occasional vpacing overnight noted.
amio/BB on hold. no present indication for pacemaker. will follow rhythm post op
-EKG 09/01 with evidence of pericarditis. consider colchicine
-hgb 9.1. continue asa, plavix
-continue post op care
-Was on losartan 100 mg daily, amlodipine 5 mg daily prior to admission
-OP lipitor dose increased to 40mg QPM
-hgbA1c 7.2%. OP metformin remains on hold. appreciate diabetic ADVERTISING SOLICITOR.
-d/w CT surg ADVERTISING SOLICITOR
Progress Note - Pesticide Chemist
Subjective
Date of Service: September 01, 2025
reports post op pain and fatigue
Objective
Labs:
09/01/25 03:11
09/01/25 03:11
Labs
Hgb 9.1 g/dL (13.0-18.0) L 09/01/25 03:11
Hct 26.3 % (39.0-52.0) L 09/01/25 03:11
Plt Count 163 10^3/uL (130-400) 09/01/25 03:11
PT 18.0 Sec (11.4-14.6) H 08/31/25 17:10
INR 1.44 08/31/25 17:10
APTT 28.9 Sec (23.4-35.0) 08/31/25 17:10
Sodium 139 mmol/L (135-145) 09/01/25 03:11
Potassium 4.3 mmol/L (3.5-5.1) 09/01/25 03:11
BUN 19 mg/dl (9-20) 09/01/25 03:11
Creatinine 0.8 mg/dL (0.7-1.3) 09/01/25 03:11
Glucose 143 mg/dl (70-99) H 09/01/25 03:11
Vital Signs and I&O:
Vital Signs
Temp Pulse Resp BP Pulse Ox
100.1 F 104 22 121/78 96
09/01/25 07:00 09/01/25 07:15 09/01/25 07:15 09/01/25 02:48 09/01/25 07:15
Vital Signs
Temp Pulse Resp BP Pulse Ox
100.1 F 104 22 121/78 96
09/01/25 07:00 09/01/25 07:15 09/01/25 07:15 09/01/25 02:48 09/01/25 07:15
Intake & Output
08/30/25 08/31/25 09/01/25 09/02/25
07:59 07:59 07:59 07:59
Intake Total 900 / 900 2328.5 / 2328.5
Output Total 1550 / 1550
Balance 900 / 900 778.5 / 778.5
Physical Exam
Physical Exam
GEN: No distress, awake, lethargic. on supp O2
HEENT: supple, anicteric, mmm
LUNGS: Decreased BS B/L, no wheezes/rales
CV: Reg, S1/S2, no murmur, + rub
ABD: soft, BS+, NT/ND
EXT: No cyanosis, clubbing. trace edema of B/L LE
NEURO: lethargic
SKIN: Warm, pink, dry. No rash. Sternotomy dressing c/d/i. CTs in place
[2025-09-01] MEDS: PROTONIX 40 MG PO (09:26)
[2025-09-01] MEDS: FEOSOL 325 MG PO (09:26)
[2025-09-01] MEDS: LOW STRENGTH ASPIRIN 81 MG PO (09:26)
[2025-09-01] MEDS: PLAVIX 75 MG PO (09:26)
[2025-09-01] MEDS: LIDOCAINE 4% PATCH 1 PATCH TOPICAL (09:26)
[2025-09-01] MEDS: BACTROBAN 2% OINTMENT 1 APPLIC NASAL ×2 (09:26→19:51)
[2025-09-01] MEDS: MAGNESIUM OXIDE PO (09:27)
[2025-09-01] MEDS: VITAMIN C 500 MG PO (09:27)
[2025-09-01] MEDS: SENOKOT 8.6 MG PO ×2 (09:27→19:51)
[2025-09-01] MEDS: NEURONTIN 100 MG PO ×3 (09:27→21:00)
[2025-09-01 10:11] LABS: Glucose - Point of Care 122 mg/dl (70-99)
[2025-09-01] MEDS: NOVOLOG FLEXPEN 4 UNITS SC ×2 (10:51→13:26)
[2025-09-01] MEDS: NSS IV (11:12)
[2025-09-01 11:18] LABS: Glucose - Point of Care 115 mg/dl (70-99)
[2025-09-01 12:23] LABS: Glucose - Point of Care 99 mg/dl (70-99)
--- NOTE | 2025-09-01 12:30 | PTCARENOTE ---
Right IJ slick d/c per orders. New IJ dressing applied. Right radial jojo d/c per orders. Hemostasis achieved. Becker catheter d/c, pt tolerated. Pt assisted OOB with 2 assist, pt stated he was slightly dizzy upon standing, but after sitting,
dizziness resolved and BP recovered. No significant dumps from chest tubes upon standing.
[2025-09-01] MEDS: COLCHICINE 0.3 MG PO (13:16)
[2025-09-01 13:24] LABS: Glucose - Point of Care 99 mg/dl (70-99)
--- NOTE | 2025-09-01 13:39 | PTCARENOTE ---
Epicardial v-wire inappropriately pacing, thresholds completed, sensitivity at lowest setting with continued inappropriate pacing, CT SURVEY RESEARCH MANAGER notified, epicardial v-wire insulated.
--- NOTE | 2025-09-01 14:25 | CM ---
Pricing on Farxiga through the patient's prescription plan is $139 for a 30 day supply and Jardiance is $146. Patient is agreeable to cost. I will place a free 30 day coupon in the patient's red discharge folder.
--- NOTE | 2025-09-01 14:27 | CM ---
Chart reviewed. Patient is independent of ADLS, lives with his in a 2 [address], 1 ROSALVA, 0 DME. Plan is for the patient to return home with CT Transitional RN. CM to follow
[2025-09-01 14:40] LABS: Glucose - Point of Care 156 mg/dl (70-99)
[2025-09-01] MEDS: TORADOL 15 MG IV (14:46)
[2025-09-01 15:57] LABS: Glucose - Point of Care 119 mg/dl (70-99)
--- NOTE | 2025-09-01 16:22 | PTCARENOTE ---
Pt reassessed. Sinus arrhythmia on tele with rates in the 90s. BP 126/81. POX 97% on 2L NC. CT output WNL. Left arm upper incision with scant bloody drainage- 4x4 applied. Pt reports no urge to urinate at this time. Cordis and PIV intact. Epicardial
v-wire insulated. Pt resting in bed with at bedside.
[2025-09-01] MEDS: DEXTROSE 50% SYRINGE 12.5 GRAMS IV (18:21)
[2025-09-01] MEDS: LIPITOR 40 MG PO (18:24)
[2025-09-01] MEDS: NOVOLOG FLEXPEN SC (18:24)
[2025-09-01 18:25] LABS: Glucose - Point of Care 61 mg/dl (70-99)
[2025-09-01 18:40] LABS: Glucose - Point of Care 131 mg/dl (70-99)
[2025-09-01] MEDS: MAGNESIUM OXIDE 400 MG PO (19:51)
[2025-09-01] MEDS: LOPRESSOR 12.5 MG PO (19:51)
[2025-09-01] MEDS: REMOVE LIDOCAINE PATCH 1 PATCH REMOVE (19:52)
--- NOTE | 2025-09-01 21:37 | PTCARENOTE ---
Assumed care of patient at 1900. Patient found resting in bed at time of assessment. Patient is AOx4, follows commands appropriately, moves all extremities. Lung sounds are diminished at the bases, saO2 96% on 2L, pulling 1750 on IS. There are CTx4:
2xmeds draining serosang to one atrium and R/L pleural draining serosang to another. Patient is SR on the monitor, they have a normal palpable L ulnar, and normal palpable R radial. Normal palpable DP pulses are present. Patient has +1 generalized
anasarca. Patient has a slight rub present on auscultation and insulated V wires. Active BS present in all four quadrants and patient voids in th eurinal. There is a sternal incision with aquacell dressing that is CDI, L groin puncture approx with
surg adhesive WILLIAM some ecchymosis around site, RLE incision approx with surg adhesive ACADEMIC AFFAIRS VICE PRESIDENT, LLE incision approx with surg adhesive ACADEMIC AFFAIRS VICE PRESIDENT, L wrist incision approx with surg adhesive WILLIAM. CT wounds have ABD dressing that is CDI. Patient has R IJ cordis
receiving KVO and R wrist 18G receiving insulin gtt col 3. VSS. Call barrow within reach.
[2025-09-01 21:58] LABS: Glucose - Point of Care 191 mg/dl (70-99)
[2025-09-01 21:58] LABS: Glucose - Point of Care 148 mg/dl (70-99)
[2025-09-01 22:06] LABS: Glucose - Point of Care 115 mg/dl (70-99)
[2025-09-01 23:06] LABS: Glucose - Point of Care 86 mg/dl (70-99)
[2025-09-02] VITALS (30 sets, daily range): BP systolic 92–136; BP diastolic 61–105; PULSE 81; O2SAT 95–97; BMI 27.0
[2025-09-02] MEDS: TORADOL 15 MG IV ×2 (01:04→10:21)
[2025-09-02 01:12] LABS: Glucose - Point of Care 104 mg/dl (70-99)
--- NOTE | 2025-09-02 01:14 | SUR.OPER ---
Patient reassessed. VSS. Nadya, toradol for pain. CHG bath administered. Remains SR on the monitor. Call barrow within reach.
--- NOTE | 2025-09-02 02:13 | W.PN.CT ---
Addendum entered and electronically signed by Juve Barnes MD 09/02/25 08:30:
I saw and examined the patient.
The PA's note was reviewed and I agree with the note.
Comment:
POD#2 s/p CABG x 3 (ILDEFONSO to LAD, RA to OM1, GSV to OM2), ELAA
No major overnight events.
Continue current medications
OOB/IS/ambulate
Follow Hgb for now
Maintain CTs today - hopefully out tomorrow
Maintain cordis
Original Note:
Today's Communication / Plan
-
No issues overnight
Current meds�(Norvasc, ASA, Lipitor, Plavix, Colchicine,�gabapentin,�Lopressor,�protonix)�
Continues�insulin�drip= Transition insulin infusion per protocol�
Norvasc for radial�harvest�
MS *2�= 125/60 =205,�PL *2 =130/15 =145
OU 650/1290= 1940
Maintain cordis
Encourage IS, OOB�
Assessment / Plan
-
unstable angina with MVCAD now s/p CABG x 3 (ILDEFONSO to LAD, RA to OM1, GSV to OM2), ELAA (50mm AtriClip) POD#2
Postoperative ANNA: Normal left ventricular size and systolic function, no regional wall motion abnormalities seen. EF 60 to 65%.
-MVCAD
-HTN
-HLD
-NIDDMII
-PARRA
-acute blood loss anemia
Subjective
Procedure
s/p CABG x 3 (ILDEFONSO to LAD, RA to OM1, GSV to OM2), ELAA (50mm AtriClip) by Dr. Barnes on 08/31/25
-
Date of Service: September 02, 2025
Objective Data
-
PT 18.0 Sec (11.4-14.6) H 08/31/25 17:10
INR 1.44 08/31/25 17:10
APTT 28.9 Sec (23.4-35.0) 08/31/25 17:10
Vital Signs
Vital Signs
Temp Pulse Resp BP Pulse Ox
99.2 F 90 20 112/78 96
09/01/25 23:00 09/02/25 02:00 09/02/25 01:00 09/02/25 02:00 09/02/25 02:00
CT Intake/Output/Weight
09/01/25 09/01/25 09/02/25
06:59 18:59 06:59
Intake Total 1668.8 / 2328.5 1264.8 / 1359.1 94.3 / 1359.1
Output Total 1115 / 1550 1185 / 2080 895 / 2080
Balance 553.8 / 778.5 79.8 / -720.9 -800.7 / -720.9
SaO2: 96
Physical Exam
-
General: Awake
Cardiovascular: Regular rate & rhythm
Respiratory: Clear and Equal
Sternum: Stable
Incision: Clean, Dry and Intact
Extremities: Edema +1
[2025-09-02 03:08] LABS: Glucose - Point of Care 113 mg/dl (70-99)
--- NOTE | 2025-09-02 04:00 | PTCARENOTE ---
Assumed care of the patient at 0115. Assessment unchanged from previous RN. Patient in bed, reports he can't sleep well. Made comfortable. VSS at this time.
[2025-09-02 05:10] LABS: Glucose - Point of Care 90 mg/dl (70-99)
[2025-09-02] MEDS: TYLENOL 975 MG PO ×3 (05:13→21:24)
[2025-09-02 05:31] LABS: Hematocrit 24.0 % (39.0-52.0); Hemoglobin 8.0 g/dL (13.0-18.0); Mean Corp Hgb Conc. 33.3 g/dL (33.0-37.0); Mean Corpuscular Volume 93.4 fL (80.0-94.0); Platelet Count 105 10^3/uL (130-400); Red Cell Dist. Width 12.4 % (11.5-14.5)
[2025-09-02 05:39] LABS: Blood Urea Nitrogen 20 mg/dl (9-20); Calcium 8.6 mg/dl (8.4-10.2); Carbon Dioxide 30 mmol/L (22-30); Chloride 106 mmol/L (98-107); Estimated Creatinine Clearance 95 ml/min; Glucose 79 mg/dl (70-99); Magnesium 2.0 mg/dl (1.6-2.3); Potassium 4.1 mmol/L (3.5-5.1); Sodium 135 mmol/L (135-145); eGFR > 60.00
[2025-09-02 07:22] LABS: Glucose - Point of Care 145 mg/dl (70-99)
--- NOTE | 2025-09-02 07:34 | W.PN.INTV ---
Today's Communication / Plan
Recommendations
- Transition insulin infusion per protocol
- Traveling Storekeeper service will sign off once patient transferred out of ICU
Assessment
-
Patient is a 64-year-old gentleman with history of hypertension, hyperlipidemia and diabetes who had been experiencing some chest tightness in the past. Patient subsequently had outpatient stress test performed which was suggestive of ischemia.
Subsequent cardiac catheterization was performed which was suggestive of significant left main disease. Patient was subsequently evaluated by cardiothoracic surgery with tentative plan for surgical revascularization. Postprocedure, patient was
admitted to CVICU and traffic and transport planner consultation was requested for further input.
In brief, 64 y/o male patient with severe CAD, S/p CABG and LA appendage exclusion POD # 2
Overview 09/02. Comfortably lying in bed. Saturating 92% on room air, MAP of 81, not requiring any pressors.
Titrate off pressors per protocol, off all pressors, MAP 81.
ECHO reviewed with normal function
Management of chest tubes per primary service, no air leak noted
Patient extubated, currently saturating 92% on RA. Work of breathing normal.
CXR with no obvious opacities/infiltrates
Maintain supplement oxygen as needed
No prior history of pulmonary disease, Smoked very briefly in his 20's.
Spirometry 08/31, normal without suggestion of obstruction or restriction.
Can add nebulizers if needed
Aspiration precautions
Encouraged incentive spirometry, OOB/ambulation/early mobility
Advance diet as tolerated following extubation
GI prophylaxis: Protonix
Monitor critical I/O's
Becker/chest tube output
Hb/platelets postoperatively, mild drift
Trend CBC for now
Can transfuse if indicated for Hb <7, plt <50 in surgical patients
DVT prophylaxis including SCDs
Insulin protocol initiated and ongoing
Transition to SQ/off as indicated per team
Other medical diagnoses:
- Mild aortic root and ascending aortic dilation
- HTN, HLD
- DM
Critical Care time [36] mins -- The patient is admitted for acute critical illness for the treatment of vital organ failure and/or prevention of further life-threatening conditions. Total care includes time spent in review of history, physical exam,
medications, hemodynamic/ventilator parameters, laboratory data, imaging and discussion with house staff, pharmacy, respiratory therapy, brim rounder, and nursing
Data:
CXR 08/2025: No acute cardiopulmonary process.
CT Chest 08/2025: 1. No significant acute abnormality identified in the chest within the limits of unenhanced CT, as described above.
2. Mild fusiform aneurysmal dilatation of the ascending thoracic aorta measuring up to 4.1 cm.
3. Severe three-vessel coronary artery calcifications.
ECHO 08/2025: 1. Ejection fraction is 55-60% by visual assessment.
2. Right ventricular size and systolic function are within normal limits.
3. Mild tricuspid regurgitation. Estimated pulmonary artery pressure of 18 mmHg assuming a right atrial pressure of 3 mmHg.
4. Mildly dilated aortic root and ascending aorta (SOV 4.4 cm, Asc aorta 4.1 cm).
5. There are no prior studies available for comparison.
LHC 08/2025: 1: Severe left main disease with normal resting distal flow.
2: Nonobstructive right coronary artery disease.
3: Normal LV systolic function with no significant mitral regurgitation.
Subjective Dataa
Subjective Data
Date of Service:
Date of Service: September 02, 2025
Subjective:
Comfortably in bed, in no acute distress.
Review of Systems
Genitourinary: Other (No new symptoms reported)
Objective Data
Data Reviewed
Vital Signs / I&O / Oxygen:
Vital Signs
Temp Pulse Resp BP Pulse Ox
97.4 F 95 16 100/61 94
09/02/25 06:00 09/02/25 06:00 09/02/25 06:00 09/02/25 06:00 09/02/25 06:00
Intake and Output
09/01/25 09/02/2509/03/25
06:59 06:59 06:59
Intake Total 2293.7 / 2328.5 1550.4 / 1564.9 14.5 / 14.5
Output Total 1485 / 1550 2925 / 2955 30 / 30
Balance 808.7 / 778.5 -1374.6 / -1390.1 -15.5 / -15.5
SaO2 [CPAP/PSV] 100
SaO2 [SIMV] 100
SaO2 94
Nasal Cannula flow liters per 2
minute
Physical Exam
General: Comfortable
HEENT: Normocephalic
Respiratory: Clear and Non-Labored Respirations
GI: Soft and Non Distended
Neurology: Awake and Alert
Skin: Warm
Labs/Micro/Reports
Lab Data
09/02/25 05:09
09/02/25 05:08
--- NOTE | 2025-09-02 08:40 | PTCARENOTE ---
Resumed care of patient. Pt assessed while he was sitting in the chair. Pt alert and oriented x4. Rates sternal pain 3/10, states it is tolerable at this time. Denies shortness of breath and nausea. TANG with equal strength throughout. C/o some
dizziness when standing to reposition. NSR on tele with rates in the 80s-100s. BP 95/65. Heart tones audible, no rub noted. Right radial, left ulnar, and bilateral DP pulses palpable. +2 generalized edema. Epicardial v-wire insulated. POX 93% on RA.
Lungs diminished in the bases. IS encouraged-1750mL achieved. No cough noted. Mediastinal chest tubes x2 y-sited to 1 atrium draining serosanguineous fluid. Right and left mediastinal chest tubes y-sited to 1 atrium to -20cm suction draining
serosanguineous fluid. No air leaks, tidaling, crepitus noted. Abdomen soft, round, nontender. +BS Pt reports passing gas. Pt due to void for this RN. Sternal incision covered with Aquacel-CDI. CT dressing CDI. Left radial incision approximated,
WILLIAM. Right knee and Left knee incisions approximated, WILLIAM. Left groin puncture sites approximated, SHOPPER INSIGHTS MANAGER. Right IJ cordis intact. Left wrist 18g PIV intact. See MAR for medication administration. See worklist for complete nursing assessment. Plan of
care reviewed and patient in agreement.
[2025-09-02] MEDS: LIDOCAINE 4% PATCH 1 PATCH TOPICAL (08:41)
[2025-09-02] MEDS: MAGNESIUM OXIDE 400 MG PO ×2 (08:42→21:23)
[2025-09-02] MEDS: NEURONTIN 100 MG PO ×3 (08:42→21:23)
[2025-09-02] MEDS: VITAMIN C 500 MG PO (08:42)
[2025-09-02] MEDS: PLAVIX 75 MG PO (08:42)
[2025-09-02] MEDS: PROTONIX 40 MG PO (08:42)
[2025-09-02] MEDS: COLCHICINE 0.3 MG PO (08:42)
[2025-09-02] MEDS: LOW STRENGTH ASPIRIN 81 MG PO (08:42)
[2025-09-02] MEDS: BACTROBAN 2% OINTMENT 1 APPLIC NASAL ×2 (08:43→21:22)
[2025-09-02] MEDS: SENOKOT 8.6 MG PO ×2 (08:43→21:23)
[2025-09-02] MEDS: NSS 500 IV (08:43)
[2025-09-02] MEDS: FEOSOL 325 MG PO (08:43)
[2025-09-02] MEDS: LOPRESSOR 12.5 MG PO ×2 (08:43→21:23)
[2025-09-02] MEDS: NOVOLOG FLEXPEN 4 UNITS SC (08:56)
[2025-09-02 09:00] LABS: Glucose - Point of Care 135 mg/dl (70-99)
--- NOTE | 2025-09-02 09:11 | W.PN.CARDCBS ---
Today's Communication / Plan
-
Telemetry reviewed. He is had no further episodes of bradycardia. Okay to initiate metoprolol.
Could also begin amiodarone if needed.
Continue aspirin Plavix and atorvastatin
Hemoglobin 8.0. Continue to follow. Platelet count 105,000.
Creatinine at 0.8.
Impression / Plan
-
PCP: Dr. Valerie Tian
Card: Dr. Luis Palomino
Impression:
Admitted with severe LM disease following cardiac cath for abnormal outpatient stress test 08/30/2025
Severe LM disease by cardiac cath 08/30/2025
s/p CABG x 3 (ILDEFONSO to LAD, RA to OM1, GSV to OM2), ELAA (50mm AtriClip) 08/31/25
HTN
Hyperlipidemia
DM 2
Echo 08/30/2025: EF 55 to 60%, normal RV size and function, mild TR with PAP 18 mmHg, mildly dilated aortic root and ascending aorta, sinus of Valsalva 4.4 cm, ascending aorta 4.1 cm
Plan:
-Patient had symptoms of chest pain prompting stress test as an outpatient leading to cardiac cath that revealed severe LM disease and then admission on 08/30/2025. Cardiac cath showed severe left main disease with normal resting flow and otherwise
nonobstructive CAD.
-s/p CABG x 3 (ILDEFONSO to LAD, RA to OM1, GSV to OM2), ELAA (50mm AtriClip) 08/31/25
- He has had no further episodes of bradycardia.
-Okay to continue metoprolol.
-EKG 09/01 with evidence of pericarditis. No new chest pains and clinically doing well.
-hgb8.0. continue asa, plavix. Continue to follow
-continue post op care
-Was on losartan 100 mg daily, amlodipine 5 mg daily prior to admission
-OP lipitor dose increased to 40mg QPM
-hgbA1c 7.2%. OP metformin remains on hold. appreciate diabetic DRY COLOR TESTER.
Progress Note - Spinneret Person
Subjective
Date of Service: September 02, 2025
Denies chest pains or shortness of breath.
Objective
Labs:
09/02/25 05:09
09/02/25 05:08
Labs
Hgb 8.0 g/dL (13.0-18.0) L 09/02/25 05:09
Hct 24.0 % (39.0-52.0) L 09/02/25 05:09
Plt Count 105 10^3/uL (130-400) L D 09/02/25 05:09
PT 18.0 Sec (11.4-14.6) H 08/31/25 17:10
INR 1.44 08/31/25 17:10
APTT 28.9 Sec (23.4-35.0) 08/31/25 17:10
Sodium 135 mmol/L (135-145) 09/02/25 05:08
Potassium 4.1 mmol/L (3.5-5.1) 09/02/25 05:08
BUN 20 mg/dl (9-20) 09/02/25 05:08
Creatinine 0.8 mg/dL (0.7-1.3) 09/02/25 05:08
Glucose 79 mg/dl (70-99) 09/02/25 05:08
Vital Signs and I&O:
Vital Signs
Temp Pulse Resp BP Pulse Ox
99.0 F 85 16 103/68 93
09/02/25 08:00 09/02/25 09:00 09/02/25 09:00 09/02/25 09:00 09/02/25 09:00
Vital Signs
Temp Pulse Resp BP Pulse Ox
99.0 F 85 16 103/68 93
09/02/25 08:00 09/02/25 09:00 09/02/25 09:00 09/02/25 09:00 09/02/25 09:00
Intake & Output
08/31/25 09/01/25 09/02/25 09/03/25
06:59 06:59 06:59 06:59
Intake Total 900 / 900 2293.7 / 2328.5 1550.4 / 1564.9 43.5 / 43.5
Output Total 1485 / 1550 2925 / 2955 70 / 70
Balance 900 / 900 808.7 / 778.5 -1374.6 / -1390.1 -26.5 / -26.5
Physical Exam
Physical Exam
GEN: No distress, awake, Ox3
HEENT: supple, anicteric, mmm
LUNGS: CTA, no wheezes/rales
CV: Reg, S1/S2, no murmur
ABD: soft, BS+, NT/ND
EXT: No edema
NEURO: Gross non-focal
SKIN: Sternotomy
[2025-09-02 11:14] LABS: Glucose - Point of Care 176 mg/dl (70-99)
[2025-09-02] MEDS: LANTUS 0.35 UNITS SC (11:53)
[2025-09-02 11:57] LABS: Glucose - Point of Care 139 mg/dl (70-99)
--- NOTE | 2025-09-02 12:00 | PTCARENOTE ---
Pt reassessed. Denies pain at this time. Ambulated from the chair out to the fraire, to the window in the room, and back to the chair. Pt stated he was dizzy walking back to the chair. SR with rates in the 90s. BP 95/65. POX 98% on RA. Surgical sites
stable. CT output WNL. Transitioning off insulin gtt. No other acute changes from previous assessment.
[2025-09-02 13:57] LABS: Glucose - Point of Care 88 mg/dl (70-99)
[2025-09-02] MEDS: NOVOLOG FLEXPEN-MODERATE RESISTANCE SC (14:36)
[2025-09-02] MEDS: LIPITOR 40 MG PO (16:44)
--- NOTE | 2025-09-02 16:45 | PTCARENOTE ---
Pt reassessed. NSR 90s. BP 125/81. POX 97% Pt ambulated in the fraire 100' and tolerated. CT output WNL. Pt voiding lucita urine in the urinal. No other acute changes from previous assessment.
[2025-09-02 17:42] LABS: Glucose - Point of Care 211 mg/dl (70-99)
[2025-09-02] MEDS: NOVOLOG FLEXPEN-MODERATE RESISTANCE 3 UNITS SC (17:51)
[2025-09-02] MEDS: ROXICODONE 5 MG PO (18:33)
[2025-09-02] MEDS: REMOVE LIDOCAINE PATCH 1 PATCH REMOVE (21:23)
--- NOTE | 2025-09-02 21:30 | PTCARENOTE ---
Patient received OOB in chair - Now resting in bed watching television. Patient A+A+Ox3. No neurological deficits noted. No c/o headache, dizziness or lightheadedness. Room air. SpO2 96%. Four chest tubes - Mediastinal x2 and Right and Left
Pleural - Intact and patent - Red drainage - No air leak. Chest tube dressing intact. Sinus Rhythm to Sinus Tachycardia with occasional PAC's. Heart rate 90-100's. Blood pressure 117/76 (86). V-Wire insulated. Patient with no c/o chest pain,
pressure or discomfort. Abdomen soft, nontender. Normoactive bowel sounds. No BM. No c/o nausea. No vomiting. Voiding without difficulty. Left radial arterial graft site - Incisions intact - Surgical adhesive - Open to air - Edema - Positive
Ulnar Pulse. Sternal dressing intact. Left groin puncture site intact. Left lower extremity incision intact. Right lower extremity incision intact. Patient with no c/o back or flank pain. Right I.J. Cordis. Assessment as documented.
[2025-09-02 21:56] LABS: Glucose - Point of Care 226 mg/dl (70-99)
[2025-09-02 23:42] LABS: Glucose - Point of Care 190 mg/dl (70-99)
[2025-09-03] VITALS (7 sets, daily range): BP systolic 103–125; BP diastolic 62–87; BMI 26.6
--- NOTE | 2025-09-03 00:30 | PTCARENOTE ---
Patient sleeping without difficulty. Assessment/Interventions as documented.
[2025-09-03] MEDS: TORADOL 15 MG IV (04:41)
[2025-09-03] MEDS: TYLENOL 975 MG PO ×3 (04:52→22:13)
[2025-09-03] MEDS: FLEXERIL 5 MG PO (04:53)
--- NOTE | 2025-09-03 05:01 | W.PN.CT ---
Addendum entered and electronically signed by Juve Barnes MD 09/03/25 09:04:
I saw and examined the patient.
The PA's note was reviewed and I agree with the note.
Comment:
No major overnight events
Maintain cordis today
Follow Hgb 7.5 today
Light diuresis today
D/C CTs today
OOB/IS/ambulate
Original Note:
Today's Communication / Plan
-
- POD #3
- No overnight events
- Current meds�(ASA, Lipitor, Plavix, Colchicine,�gabapentin,�Lopressor,�protonix)�
- EKG suggestive of pericarditis, continued on Colchicine
- Norvasc held, midodrine started and BB started. Amio still on hold
- CTs 2M 55/[address] 55/170 cc out in 12/24 hrs
- UOP 1450/1950 cc out in 12/24 hrs
- OOB/IS
Assessment / Plan
-
unstable angina with MVCAD now s/p CABG x 3 (ILDEFONSO to LAD, RA to OM1, GSV to OM2), ELAA (50mm AtriClip) POD#3
Postoperative ANNA: Normal left ventricular size and systolic function, no regional wall motion abnormalities seen. EF 60 to 65%.
-MVCAD
-HTN
-HLD
-NIDDMII
-PARRA
-acute blood loss anemia
Subjective
Procedure
s/p CABG x 3 (ILDEFONSO to LAD, RA to OM1, GSV to OM2), ELAA (50mm AtriClip) by Dr. Barnes on 08/31/25
-
Date of Service: September 03, 2025
Objective Data
-
PT 18.0 Sec (11.4-14.6) H 08/31/25 17:10
INR 1.44 08/31/25 17:10
APTT 28.9 Sec (23.4-35.0) 08/31/25 17:10
Vital Signs
Vital Signs
Temp Pulse Resp BP Pulse Ox
99.0 F 105 16 96/69 91
09/02/25 23:40 09/03/25 04:00 09/02/25 23:40 09/02/25 23:40 09/02/25 23:40
CT Intake/Output/Weight
09/02/25 09/02/25 09/03/25
06:59 18:59 06:59
Intake Total 285.6 / 1564.9 384.0 / 714.0 330 / 714.0
Output Total 1740 / 2955 670 / 2230 1560 / 2230
Balance -1454.4 / -1390.1 -286.0 / -1516.0 -1230 / -1516.0
SaO2: 91
Physical Exam
-
General: Awake and Oriented
Cardiovascular: Regular rate & rhythm, No Murmurs and Rub
Respiratory: Clear and Equal
Sternum: Stable
Incision: Clean, Dry and Intact
Extremities: No Edema and No Erythema
Data Reviewed
-
Lab Results: Results Reviewed
Medications: Active Meds Reviewed
Chest X-Ray: Report Reviewed
ECG: Report Reviewed
--- NOTE | 2025-09-03 05:15 | PTCARENOTE ---
Patient A+A+Ox3. No neurological deficits noted. Toradol 15 mg IV for pain management. AM labs collected and sent. Patient given CHG bath and linens changed. OOB to chair. Assessment/Interventions as documented.
[2025-09-03 05:30] LABS: Hematocrit 23.0 % (39.0-52.0); Hemoglobin 7.5 g/dL (13.0-18.0); Mean Corp Hgb Conc. 32.6 g/dL (33.0-37.0); Mean Corpuscular Volume 94.7 fL (80.0-94.0); Platelet Count 134 10^3/uL (130-400); Red Cell Dist. Width 12.3 % (11.5-14.5)
[2025-09-03 05:32] LABS: Blood Urea Nitrogen 21 mg/dl (9-20); Calcium 8.1 mg/dl (8.4-10.2); Carbon Dioxide 29 mmol/L (22-30); Chloride 105 mmol/L (98-107); Estimated Creatinine Clearance 95 ml/min; Glucose 160 mg/dl (70-99); Magnesium 2.0 mg/dl (1.6-2.3); Potassium 4.1 mmol/L (3.5-5.1); Sodium 134 mmol/L (135-145); eGFR > 60.00
--- NOTE | 2025-09-03 07:45 | PTCARENOTE ---
Pt received from outgoing RN, POD 3 cabg. OOb in chair, ST, VSS, RA, pain management, CT x3, Vwire insulated, Rt IJ cordis, ambulating as tolerated, plan for CT removal today.
[2025-09-03 07:59] LABS: Glucose - Point of Care 185 mg/dl (70-99)
[2025-09-03] MEDS: NEURONTIN 100 MG PO ×3 (08:17→22:14)
[2025-09-03] MEDS: MAGNESIUM OXIDE 400 MG PO ×2 (08:17→20:12)
[2025-09-03] MEDS: NOVOLOG FLEXPEN-MODERATE RESISTANCE 1 UNITS SC ×3 (08:17→17:32)
[2025-09-03] MEDS: FEOSOL 325 MG PO ×2 (08:17→20:12)
[2025-09-03] MEDS: COLCHICINE 0.3 MG PO (08:17)
[2025-09-03] MEDS: VITAMIN C 500 MG PO ×2 (08:17→11:14)
[2025-09-03] MEDS: GLUCOPHAGE 1000 MG PO ×2 (08:17→17:32)
[2025-09-03] MEDS: LOW STRENGTH ASPIRIN 81 MG PO (08:17)
[2025-09-03] MEDS: BACTROBAN 2% OINTMENT 1 APPLIC NASAL ×2 (08:18→20:13)
[2025-09-03] MEDS: SENOKOT 8.6 MG PO ×2 (08:18→20:12)
[2025-09-03] MEDS: LANTUS 0.35 UNITS SC (08:18)
[2025-09-03] MEDS: LIDOCAINE 4% PATCH TOPICAL (08:18)
[2025-09-03] MEDS: PLAVIX 75 MG PO (08:18)
[2025-09-03] MEDS: PROTONIX 40 MG PO (08:18)
[2025-09-03] MEDS: LOPRESSOR 12.5 MG PO ×2 (08:18→20:12)
--- NOTE | 2025-09-03 10:08 | W.PN.CARDCBS ---
Today's Communication / Plan
-
Overall doing well. No further bradycardia. Continue metoprolol.
Continue amiodarone. Continue aspirin and Plavix.
Hemoglobin down to 7.5. Continue to follow
Impression / Plan
-
PCP: Dr. Valerie Tian
Card: Dr. Luis Palomino
Impression:
Admitted with severe LM disease following cardiac cath for abnormal outpatient stress test 08/30/2025
Severe LM disease by cardiac cath 08/30/2025
s/p CABG x 3 (ILDEFONSO to LAD, RA to OM1, GSV to OM2), ELAA (50mm AtriClip) 08/31/25
HTN
Hyperlipidemia
DM 2
Echo 08/30/2025: EF 55 to 60%, normal RV size and function, mild TR with PAP 18 mmHg, mildly dilated aortic root and ascending aorta, sinus of Valsalva 4.4 cm, ascending aorta 4.1 cm
Plan:
-Patient had symptoms of chest pain prompting stress test as an outpatient leading to cardiac cath that revealed severe LM disease and then admission on 08/30/2025. Cardiac cath showed severe left main disease with normal resting flow and otherwise
nonobstructive CAD.
-s/p CABG x 3 (ILDEFONSO to LAD, RA to OM1, GSV to OM2), ELAA (50mm AtriClip) 08/31/25
- He has had no further episodes of bradycardia. Remains in sinus rhythm
-Okay to continue metoprolol.
-EKG 09/01 with evidence of pericarditis. No new chest pains and clinically doing well.
-hgb down to 7.5. Continue asa, plavix. Continue to follow
-Was on losartan 100 mg daily, amlodipine 5 mg daily prior to admission
-OP lipitor dose increased to 40mg QPM
-hgbA1c 7.2%. OP metformin remains on hold. appreciate diabetic MEDICAL BILLING SUPERVISOR.
Progress Note - Bench Loom Weaver
Subjective
Date of Service: September 03, 2025
Continues to improve. Denies chest pain or shortness of breath
Objective
Labs:
09/03/25 05:02
09/03/25 05:02
Labs
Hgb 7.5 g/dL (13.0-18.0) L 09/03/25 05:02
Hct 23.0 % (39.0-52.0) L 09/03/25 05:02
Plt Count 134 10^3/uL (130-400) D 09/03/25 05:02
PT 18.0 Sec (11.4-14.6) H 08/31/25 17:10
INR 1.44 08/31/25 17:10
APTT 28.9 Sec (23.4-35.0) 08/31/25 17:10
Sodium 134 mmol/L (135-145) L 09/03/25 05:02
Potassium 4.1 mmol/L (3.5-5.1) 09/03/25 05:02
BUN 21 mg/dl (9-20) H 09/03/25 05:02
Creatinine 0.8 mg/dL (0.7-1.3) 09/03/25 05:02
Glucose 160 mg/dl (70-99) H 09/03/25 05:02
Vital Signs and I&O:
Vital Signs
Temp Pulse Resp BP Pulse Ox
98.5 F 86 18 103/82 96
09/03/25 07:58 09/03/25 09:00 09/03/25 07:58 09/03/25 07:54 09/03/25 07:58
Vital Signs
Temp Pulse Resp BP Pulse Ox
98.5 F 86 18 103/82 96
09/03/25 07:58 09/03/25 09:00 09/03/25 07:58 09/03/25 07:54 09/03/25 07:58
Intake & Output
09/01/25 09/02/25 09/03/25/20/25
06:59 06:59 06:59 06:59
Intake Total 2293.7 / 2328.5 1550.4 / 1564.9 984.0 / 984.0 0 / 0
Output Total 1485 / 1550 2925 / 2955 2260 / 2260 320 / 320
Balance 808.7 / 778.5 -1374.6 / -1390.1 -1276.0 / -1276.0 -320 / -320
Physical Exam
Physical Exam
GEN: No distress, awake, Ox3
HEENT: supple, anicteric, mmm
LUNGS: CTA, no wheezes/rales
CV: Reg, S1/S2, no gallop
ABD: soft, BS+, NT/ND
EXT: No edema
NEURO: Gross non-focal
SKIN: sternotomy
[2025-09-03] MEDS: LASIX 20 MG IV (11:14)
--- NOTE | 2025-09-03 12:00 | PTCARENOTE ---
pt reassesssment unchanged from previous, vss, ra, ct x4 dced, oob ambulating
[2025-09-03 12:05] LABS: Glucose - Point of Care 174 mg/dl (70-99)
--- NOTE | 2025-09-03 14:22 | PTCARENOTE ---
Patient received from previous shift resting oob in chair, ambulating ad dickson. NSR via cm. Temp epicardial V-wire, insulated to chest wall. All procedural sites stable. States pain controlled. Patient and spouse updated to plan of care, in agreement.
Ambulated w/ to solarium for lunch. See work list for full assessment and interventions performed.
[2025-09-03] MEDS: NSS IV (16:16)
[2025-09-03] MEDS: PACERONE 200 MG PO ×2 (16:26→22:14)
--- NOTE | 2025-09-03 16:30 | PTCARENOTE ---
VS obtained, stable. Patient ambulatory ad dickson.
[2025-09-03 17:32] LABS: Glucose - Point of Care 180 mg/dl (70-99)
[2025-09-03] MEDS: LIPITOR 40 MG PO (17:32)
[2025-09-03] MEDS: REMOVE LIDOCAINE PATCH REMOVE (20:13)
--- NOTE | 2025-09-03 20:29 | PTCARENOTE ---
received pt from previous rn. Pt AAOx4. VSS. Sinus tachy/NSR per tele monitor HR 90-100s. +pulses. v wire insulated. trace edema. pox 99% on RA. lungs clear diminished at bases. IS 1000. +bs, pt ambulating and voiding in bathroom spontaneously. all
surgical incisions intact. RIJ cordis infusing kvo. PIV x1 intact. plan of care discussed and questions encouraged. call barrow within reach. see worklist for full nursing assessment and interventions
[2025-09-03 22:14] LABS: Glucose - Point of Care 132 mg/dl (70-99)
--- NOTE | 2025-09-03 23:46 | PTCARENOTE ---
pt reassessed. VSS. pt ambulating in room. NSR/ sinus tachy per tele monitor HR 90-100s. assessment remains unchanged
[2025-09-04] VITALS (9 sets, daily range): BP systolic 112–132; BP diastolic 72–89; PULSE 76; O2SAT 98–99; BMI 26.2
--- NOTE | 2025-09-04 00:52 | W.PN.CT ---
Addendum entered and electronically signed by Juve Barnes MD 09/04/25 06:36:
Pt. would like to be discharged today
Ambulated extremely well yesterday (> 12 laps around floor)
Will plan for D/C post transfusion
Addendum entered and electronically signed by Juve Barnes MD 09/04/25 06:33:
I saw and examined the patient.
The PA's note was reviewed and I agree with the note.
Comment:
Doing well
Hgb down to 7.2 today - will transfuse 1U PRBC
OOB/IS/ambulate
D/C planning for 1-2 days
D/C cordis today post transfusion
Original Note:
Today's Communication / Plan
-
No issues overnight�
Current meds�(Norvasc, ASA, Lipitor, Plavix, Colchicine,�gabapentin,�Lopressor,�protonix)�
Norvasc for radial�harvest�(on hold)�
Encourage IS, OOB�
Consider�DC cordis�
DC planning
Assessment / Plan
-
unstable angina with MVCAD now s/p CABG x 3 (ILDEFONSO to LAD, RA to OM1, GSV to OM2), ELAA (50mm AtriClip) POD#4
Postoperative ANNA: Normal left ventricular size and systolic function, no regional wall motion abnormalities seen. EF 60 to 65%.
-MVCAD
-HTN
-HLD
-NIDDMII
-PARRA
-acute blood loss anemia
Subjective
Procedure
s/p CABG x 3 (ILDEFONSO to LAD, RA to OM1, GSV to OM2), ELAA (50mm AtriClip) by Dr. Barnes on 08/31/25
-
Date of Service: September 04, 2025
Objective Data
-
PT 18.0 Sec (11.4-14.6) H 08/31/25 17:10
INR 1.44 08/31/25 17:10
APTT 28.9 Sec (23.4-35.0) 08/31/25 17:10
Vital Signs
Vital Signs
Temp Pulse Resp BP Pulse Ox
98.7 F 92 18 111/80 99
09/03/25 23:45 09/03/25 23:07 09/03/25 23:45 09/03/25 23:07 09/03/25 23:45
CT Intake/Output/Weight
09/03/25 09/03/25 09/04/25
06:59 18:59 06:59
Intake Total 600 / 984.0 520 / 590 70 / 590
Output Total 1590 / 2260 1020 / 1020
Balance -990 / -1276.0 -500 / -430 70 / -430
SaO2: 99
Physical Exam
-
General: Awake, Oriented and AOx3
Cardiovascular: Regular rate & rhythm
Respiratory: Clear
Sternum: Stable and Unstable
Incision: Clean, Dry and Intact
Extremities: Edema +1
[2025-09-04 01:33] LABS: Hematocrit 22.2 % (39.0-52.0); Hemoglobin 7.2 g/dL (13.0-18.0); Mean Corp Hgb Conc. 32.4 g/dL (33.0-37.0); Mean Corpuscular Volume 94.5 fL (80.0-94.0); Platelet Count 151 10^3/uL (130-400); Red Cell Dist. Width 12.3 % (11.5-14.5)
[2025-09-04 01:50] LABS: Blood Urea Nitrogen 23 mg/dl (9-20); Calcium 8.3 mg/dl (8.4-10.2); Carbon Dioxide 29 mmol/L (22-30); Chloride 107 mmol/L (98-107); Estimated Creatinine Clearance 97 ml/min; Glucose 97 mg/dl (70-99); Magnesium 1.9 mg/dl (1.6-2.3); Potassium 3.7 mmol/L (3.5-5.1); Sodium 138 mmol/L (135-145); eGFR > 60.00
[2025-09-04] MEDS: KCL 50 IV (03:16)
[2025-09-04] MEDS: MAGNESIUM SULFATE 102 GRAMS IV (04:15)
--- NOTE | 2025-09-04 04:33 | PTCARENOTE ---
Potassium and Magnesium repleted. VSS. NSR per tele monitor HR 80s. assessment unchanged
[2025-09-04] MEDS: TYLENOL 975 MG PO (06:07)
--- NOTE | 2025-09-04 07:42 | PN.DE.MGMTRT ---
Insulin Management
- -
09/04/2025: Diabetes Management Follow up
64 year old male with PMH: HTN, HLD and T2DM who had been experiencing some chest tightness in the past. Patient subsequently had outpatient stress test performed which was suggestive of ischemia. Subsequent cardiac catheterization was performed
which was suggestive of significant left main disease. Patient was subsequently evaluated by cardiothoracic surgery with tentative plan for surgical revascularization. Was taking Metformin 1000mg BID prior to admission. A1C 7.2%, Cr 0.8, eGFR >60.
Patient is awake alert and oriented, sitting up in chair, offers no complaints, able to discuss diabetes care plan.
Transitioned off critical care glycemic protocol insulin infusion on Thursday tp Lantus 35 units @ HS and Metformin.
Pt new to insulin, no indication to continue Lantus given A1C of 7.2% that is at goal.
Will discontinue Lantus and start Farxiga 10mg daily. Cont Metformin 1000 mg BID
Discussed again benefits of Farxiga with pt, he was more receptive today and agreeable to Farxiga.
Instructed pt to continue monitoring glucose BID to understand how different foods affect his blood sugars.
Emphasized importance of glucose control post cardiac surgery to minimize acute and chronic diabetes related complications.
Discussed with nurse. Will cont to follow. Resume Metformin 1000 mg BID and start SGLT2 upon transition.
Meds at discharge: Metformin 1000 mg BID and Farxiga 10mg daily
Diabetes History
- -
Type of Diabetes: 2
Pre-Admission Diabetes Regimen
09/04/25
01:19
Creatinine 0.8
Lab Results
Hemoglobin A1c 7.2 % (4.0-5.6) H 08/30/25 16:12
Insulin Pump Settings
IP Diabetes Regimen
09/03/25 09/03/25 09/03/25
07:52 12:02 17:31
Glucose
POC Glucose 185 H 174 H 180 H
09/03/25 09/04/25
22:12 01:19
Glucose 97
POC Glucose 132 H
Meal type: Dinner
Meal type: Lunch
Amount consumed: 100%
Amount consumed: 75%
Patient Education
[2025-09-04 08:04] LABS: Glucose - Point of Care 188 mg/dl (70-99)
[2025-09-04] MEDS: LOPRESSOR 12.5 MG PO (08:08)
[2025-09-04] MEDS: PLAVIX 75 MG PO (08:09)
[2025-09-04] MEDS: GLUCOPHAGE 1000 MG PO (08:09)
[2025-09-04] MEDS: MAGNESIUM OXIDE 400 MG PO (08:09)
[2025-09-04] MEDS: KCL 40 MEQ PO (08:09)
[2025-09-04] MEDS: VITAMIN C 1000 MG PO (08:09)
[2025-09-04] MEDS: PROTONIX 40 MG PO (08:09)
[2025-09-04] MEDS: NEURONTIN 100 MG PO (08:09)
[2025-09-04] MEDS: LANTUS 0.35 UNITS SC (08:10)
[2025-09-04] MEDS: LOW STRENGTH ASPIRIN 81 MG PO (08:10)
[2025-09-04] MEDS: PACERONE 200 MG PO (08:10)
[2025-09-04] MEDS: FEOSOL 325 MG PO (08:10)
[2025-09-04] MEDS: COLCHICINE 0.3 MG PO (08:10)
[2025-09-04] MEDS: BACTROBAN 2% OINTMENT 1 APPLIC NASAL (08:11)
[2025-09-04] MEDS: NOVOLOG FLEXPEN-MODERATE RESISTANCE 1 UNITS SC ×2 (08:11→11:57)
[2025-09-04] MEDS: SENOKOT PO (08:13)
[2025-09-04] MEDS: LIDOCAINE 4% PATCH TOPICAL (08:16)
--- NOTE | 2025-09-04 08:30 | PTCARENOTE ---
Patient received from mold shifter RN; AAOx3, responds spontaneously to RN and follows commands; VSS; SR with ST on monitor; Epicardial V-wire insulated; Trace generalized edema; +2 DP pulses; Lungs clear; Patient urinating in bathroom; Surgical
sites intact; RIJ Cordis and PIVx1 present; See nursing documentation for further information
[2025-09-04] MEDS: LASIX 40 MG IV (10:12)
--- NOTE | 2025-09-04 11:48 | CM ---
Chart reviewed. Patient is being discharged today. Patient is independent of ADLS, lives with his in a 2 [address], 1 ROSALVA, 0 DME. Plan is for the patient to return home with CT Transitional RN. CM to follow
[2025-09-04] MEDS: FARXIGA 10 MG PO (11:56)
[2025-09-04 11:57] LABS: Glucose - Point of Care 178 mg/dl (70-99)
[2025-09-04] MEDS: NORVASC 2.5 MG PO (11:57)
--- NOTE | 2025-09-04 12:10 | W.DCSUMMARY ---
Discharge Summary
Discharge Data
Date of Admission: 08/30/25
Date of Discharge: 09/04/25
Total time spent discharging patient (in min): 50
-
Pending Results: No
Hospital Course
Primary care physician:
Dr. Tian
Outpatient engineering and operations director:
Dr. Palomino
Inpatient consultants:
DCA, personal protection specialist, DM management [employer] ANIMAL DAMAGE CONTROL AGENT
Procedures:
1. CABG x 3 (ILDEFONSO to LAD, RA to OM1, GSV to OM2) and ELAA (50mm AtriClip)
Primary Diagnosis:
1. 2VCAD including significant LM disease.
Secondary Diagnoses:
-MVCAD
-HTN
-HLD
-NIDDMII
-PARRA
HPI: 64-year-old male with PMH significant for HTN, HLD, NIDDMII, and PARRA, with one month history of exertional chest tightness with radiation down bilateral arms. Patient was evaluated by Dr. Palomino and an outpatient stress test reported EKG
changes consistent with ischemia. Patient underwent elective catheterization on 08/30/25 which identified 90% left main/2 vessel coronary disease. Expedited work-up completed and patient underwent CABG 08/31/25.
Hospital course:
Patient was admitted after a elective left heart cath on 08/30. He was taken to the CV OR on 08/31 for a CABG with Dr. Barnes. Postoperatively he returned to the CVICU for the remainder of his care. He was on Levophed and Cardizem for his radial
conduit. Due to labile blood pressures Cardizem was turned off and he was given 500 cc of lactated Ringer's. On 09/01 postoperative day 1 patient received a total of 1750 mL of lactated Ringer's. He was weaned off Levophed and started on
midodrine. EKG showed pericarditis and he was started on colchicine. On 09/02 postoperative day 2, patient was tolerating beta-blockers and midodrine. On 09/03 postoperative day 3, chest tubes were removed. Patient was tolerating beta-blockers
and midodrine was discontinued. On 09/04 postoperative day 4, patient was given 1 unit of packed red blood cells followed by 40 mg of IV Lasix. He was also started on 2.5 mg of Norvasc for his radial conduit. Patient expressed that he wanted to
go home, he was given his prescriptions and informed to weigh himself daily while taking daily furosemide.
Home medication changes:
see below
Discharge Plan
-
Patient Disposition: Home (Routine Discharge)
Discharge Diagnosis/Procedures: CABG x 3 (ILDEFONSO to LAD, RA to OM1, GSV to OM2); LAAC
Condition: Good
Diet: Low Cholesterol, 2 Gram Sodium, Diabetic, Carb Controlled and Restrict fluids to 64 oz
Activity: No strenuous activity
Driving Restrictions: Not until seen by your Dr
Bathing Restrictions: OK to Shower
Blood Work: BMP in 1 week
Other Services: Cardiac Rehab
Specialty Instructions: Weigh Daily- Call MD for wt gain/loss 3 lbs overnight/5 lbs in 1 week
Activity Restrictions/Additional Instructions:
ACTIVITY:
-No strenuous activity: no heavy lifting, pushing, pulling anything over 15 pounds for one month
-continue to use stairs as tolerated
DRIVING RESTRICTIONS:
-No driving for one month or until approved by your surgeon
WOUND CARE:
-Shower daily. Use soap & water.
-No lotions, creams or powders on incision area.
DIET:
-continue a low fat/low cholesterol diet.
-IF you are diabetic, continue carb controlled diet.
CARDIAC REHAB:
-Please make appointment to start in 5-6 weeks with your local hospital program. (See Cardiac Rehabilitation Discharge Booklet).
SPECIALTY INSTRUCTIONS:
-Weigh yourself daily. Call your physician for any weight gain/loss of 3 lbs overnight or 5 lbs in one week.
-REPORT any clicking noise or uneven appearance of your sternum to your surgeon immediately.
-If you smoke, you are instructed to quit. The [place] smoking hotline phone number is [phone]
Stand Alone Forms: DC Instructions- Cath/EP Lab
Referrals:
CT Transitional Care Nurse [Outside]
Referral Note: The Cardiothoracic Transitional Care Nurse will call you to set up a visit in 1-2 days.
Valerie Tian DO [Primary Care Provider, Internal Medicine]
Juve Barnes MD [Active, Cardiac Surgery] - 09/26/25 2:00 pm
Shanda Palomino MD [Active, Cardiology] - 10/06/25 8:30 am
Prescriptions:
New
cyclobenzaprine 10 mg Tablet
5 mg PO Q8HPRN PRN (Reason: muscle spasm) Qty: 30 0RF
atorvastatin 20 mg Tablet
40 mg PO QPM Qty: 60 0RF
clopidogrel 75 mg Tablet
75 mg PO DAILY Qty: 30 0RF
metoprolol succinate [Toprol XL] 50 mg tablet extended release 24 hr
50 mg PO HS Qty: 60 0RF
acetaminophen 325 mg Tablet
650 mg PO Q4HPRN PRN (Reason: mild pain,headache,temp >101F ) Qty: 0 0RF
amlodipine 2.5 mg Tablet
2.5 mg PO DAILY Qty: 30 0RF
aspirin 81 mg Tablet,Chewable
81 mg PO DAILY Qty: 0 0RF
oxycodone 5 mg Tablet
2.5 mg PO Q4HPRN PRN (Reason: moderate to severe pain) Qty: 10 0RF
dapagliflozin propanediol [Farxiga] 10 mg tablet
10 mg PO DAILY Qty: 30 1RF
potassium chloride 10 mEq capsule, extended release
20 meq PO DAILY Qty: 7 0RF
colchicine 0.6 mg tablet
0.3 mg PO DAILY 30 Days Qty: 15 0RF
Continued
metformin 1,000 mg Tablet
1,000 mg PO BID
Discontinued
atorvastatin 20 mg Tablet
20 mg PO QPM
amlodipine 5 mg Tablet
5 mg PO DAILY
losartan 100 mg Tablet
100 mg PO DAILY
coenzyme Q10 [Co Q-10] 200 mg Capsule
200 mg PO DAILY
Discharge Orders:
Discharge Patient (As Directed); Ordered 09/04/25
Ordered By: Ashlyn Escamilla
Care Plan Goals
Care Plan Goals:
Problem: Readiness for enhanced knowledge related to diagnosis and treatment plan
Goal: Understand your diagnosis and treatment plan needs, including medications if applicable.
Instructions: Know your diagnosis, underlying causes and treatment plan options, including medications if applicable. Consult with your health care team to learn about your diagnosis and treatment plan, including medications if applicable.
Discharge Date and Time
Print Language: HUNGARIAN
--- NOTE | 2025-09-04 12:53 | W.PN.CARDCBS ---
Addendum entered and electronically signed by Gavin Hayward MD 09/04/25 13:38:
I saw and examined the patient.
The CASE MANAGEMENT MANAGER or PA's note was reviewed and I agree with the note.
Comment: General: Well developed, well nourished in NAD.
Neck: Supple, no JVD, HJR, carotids +2 B/L, no bruits bilaterally.
Heart: Non displaced PMI, RRR, no murmurs, No S3, S4, no rubs.
Lungs: Scattered rhonchi
Sternal dressings noted
Extremities: No clubbing, cyanosis or edema bilaterally.
Neuro: Grossly nonfocal, awake, alert and oriented x3.
Stable cardiology status for discharge. Remains in sinus rhythm. Follow-up with Dr. Palomino
Original Note:
Today's Communication / Plan
-
He might be going home today
Patient should follow-up with Dr. Palomino
Impression / Plan
-
PCP: Dr. Valerie Tian
Card: Dr. Luis Palomino
Impression:
Admitted with severe LM disease following cardiac cath for abnormal outpatient stress test 08/30/2025
Severe LM disease by cardiac cath 08/30/2025
CAD s/p CABG x 3 (ILDEFONSO to LAD, RA to OM1, GSV to OM2), ELAA (50mm AtriClip) 08/31/25
HTN
Hyperlipidemia
DM 2
Echo 08/30/2025: EF 55 to 60%, normal RV size and function, mild TR with PAP 18 mmHg, mildly dilated aortic root and ascending aorta, sinus of Valsalva 4.4 cm, ascending aorta 4.1 cm
Plan:
-Patient had symptoms of chest pain prompting stress test as an outpatient leading to cardiac cath that revealed severe LM disease and then admission on 08/30/2025. Cardiac cath showed severe left main disease with normal resting flow and otherwise
nonobstructive CAD.
-s/p CABG x 3 (ILDEFONSO to LAD, RA to OM1, GSV to OM2), ELAA (50mm AtriClip) 08/31/25
-Patient had episodes of bradycardia and hypotension while intubated on POD #1 that resolved with extubation and were thought to possibly be vagal. Patient has otherwise been tolerating Lopressor 12.5 mg BID. Patient was taking Toprol-XL 50 mg HS
prior to admission
-Outpatient dose of losartan 100 mg daily has been on hold since admission
-Outpatient dose of amlodipine was decreased to 2.5 mg daily
-New to aspirin this admission
-New to Plavix 75 mg daily this admission
-LDL 71 and outpatient dose of atorvastatin increased to 40 mg daily
-Patient known DM2 and his outpatient dose of metformin 1000 mg BID has been resumed. HgbA1c 7.2%.
-New to Farxiga 10 mg daily
Progress Note - [employer]
Subjective
Date of Service: September 04, 2025
No chest pain or SOB
Objective
Labs:
09/04/25 01:19
09/04/25 01:19
Labs
Hgb 7.2 g/dL (13.0-18.0) L 09/04/25 01:19
Hct 22.2 % (39.0-52.0) L 09/04/25 01:19
Plt Count 151 10^3/uL (130-400) 09/04/25 01:19
PT 18.0 Sec (11.4-14.6) H 08/31/25 17:10
INR 1.44 08/31/25 17:10
APTT 28.9 Sec (23.4-35.0) 08/31/25 17:10
Sodium 138 mmol/L (135-145) 09/04/25 01:19
Potassium 3.7 mmol/L (3.5-5.1) 09/04/25 01:19
BUN 23 mg/dl (9-20) H 09/04/25 01:19
Creatinine 0.8 mg/dL (0.7-1.3) 09/04/25 01:19
Glucose 97 mg/dl (70-99) 09/04/25 01:19
Vital Signs and I&O:
Vital Signs
Temp Pulse Resp BP Pulse Ox
97.6 F 77 17 119/83 98
09/04/25 12:01 09/04/25 12:01 09/04/25 12:01 09/04/25 12:01 09/04/25 12:01
Vital Signs
Temp Pulse Resp BP Pulse Ox
97.6 F 77 17 119/83 98
09/04/25 12:01 09/04/25 12:01 09/04/25 12:01 09/04/25 12:01 09/04/25 12:01
Intake & Output
09/02/25 09/03/25 09/04/25 09/05/25
06:59 06:59 06:59 06:59
Intake Total 1550.4 / 1564.9 984.0 / 984.0 780 / 780 260 / 260
Output Total 2925 / 2955 2260 / 2260 1020 / 1020
Balance -1374.6 / -1390.1 -1276.0 / -1276.0 -240 / -240 260 / 260
Physical Exam
Physical Exam
GEN: AAOx3
LUNGS: RA. No wheeze
CV: SR/SB on tele
[2025-09-04] MEDS: TYLENOL PO (13:10)
--- NOTE | 2025-09-04 14:13 | PTCARENOTE ---
Patient discharged to home - states full understanding of discharge instructions and has no further questions at this time; VSS; Telemetry pack and PIVx1 removed at bedside; Patient belongings taken with patient and spouse; Taken by wheelchair by
volunteer to spouse's vehicle
[2025-09-05 06:58] LABS: B.E. - POC -0.2 mmol/L; Glucose - POC 170 mg/dl (70-99); HCO3 - POC 25 mmol/L (21-28); Hematocrit - POC 37 % PCV (42-52); Hemodilution- POC No; Hemoglobin Calculated - POC 12.4; Ionized Calcium - POC 1.23 mmol/L (1.15-1.33); Lactate - POC < 0.30 mmol/L (0.36-0.75); O2 Saturation %Calculated-POC 99.9 % (94-98); PCO2 - POC 44 mmHg (35-48); PO2 - POC 328 mmHg (83-108); Potassium - POC 4.2 mmol/L (3.5-5.1); Sodium - POC 140 mmol/L (136-145); Specimen Type - POC Arterial; pH - POC 7.37 (7.35-7.45)
== END 2025-09-04 14:15 | disposition home or self-care (01) | DRG 234 ==
LOC: CVICU 12:01
PROVIDERS: Nurse Practitioner; Nurse Practitioner Adult Health; Physician Assistant Medical; ADMITTING PHYSICIAN Internal Medicine Interventional Cardiology; ATTENDING PHYSICIAN Thoracic Surgery (Cardiothoracic Vascular Surgery); CONSULT PHYSICIAN Internal Medicine; CONSULT PHYSICIAN Internal Medicine Cardiovascular Disease; PRIMARYCARE PHYSICIAN Internal Medicine
PROC: 4A023N7 Measurement of Cardiac Sampling and Pressure, Left Heart, Percutaneous Approach (ICD-10-PCS; 2025-08-30)
PROC: B2111ZZ Fluoroscopy of Multiple Coronary Arteries using Low Osmolar Contrast (ICD-10-PCS; 2025-08-30)
PROC: B24BZZ4 Ultrasonography of Heart with Aorta, Transesophageal (ICD-10-PCS; 2025-08-31)
PROC: 5A1221Z Performance of Cardiac Output, Continuous (ICD-10-PCS; 2025-08-31)
PROC: 02100AW Bypass Coronary Artery, One Artery from Aorta with Autologous Arterial Tissue, Open Approach (ICD-10-PCS; 2025-08-31)
PROC: 021009W Bypass Coronary Artery, One Artery from Aorta with Autologous Venous Tissue, Open Approach (ICD-10-PCS; 2025-08-31)
PROC: 02100ZC Bypass Coronary Artery, One Artery from Thoracic Artery, Open Approach (ICD-10-PCS; 2025-08-31)
PROC: [UNRECOGNIZED PROCEDURE] (2025-08-31)
PROC: 03BC4ZZ Excision of Left Radial Artery, Percutaneous Endoscopic Approach (ICD-10-PCS; 2025-08-31)
PROC: 02L70CK Occlusion of Left Atrial Appendage with Extraluminal Device, Open Approach (ICD-10-PCS; 2025-08-31)
PROC: 06BQ4ZZ Excision of Left Saphenous Vein, Percutaneous Endoscopic Approach (ICD-10-PCS; 2025-08-31)
PROC: 30233N1 Transfusion of Nonautologous Red Blood Cells into Peripheral Vein, Percutaneous Approach (ICD-10-PCS; 2025-09-04)
DX: I25.110 Atherosclerotic heart disease of native coronary artery with unstable angina pectoris (principal); D62 Acute posthemorrhagic anemia; I31.9 Disease of pericardium, unspecified; I10 Essential (primary) hypertension; E78.5 Hyperlipidemia, unspecified; R00.1 Bradycardia, unspecified; I95.9 Hypotension, unspecified; K75.81 Nonalcoholic steatohepatitis (NASH); I77.810 Thoracic aortic ectasia; E11.9 Type 2 diabetes mellitus without complications; Z79.84 Long term (current) use of oral hypoglycemic drugs; Z87.891 Personal history of nicotine dependence
CPT/HCPCS: 71045; 71046; 71250; 80048; 80061; 80076; 81003; 81015; 82330; 82565; 82805; 82947; 82962; 83036; 83735; 84132; 84302; 84520; 85014; 85018; 85027; 85049; 85610; 85730; 86803; 86850; 86900; 86901; 86920; 93005; 93306; 93312; 93320; 93325; 93458; 93880; 93923; 93930; 94002; C1713; C1769; C1894; P9016; Q9967